=== PATIENT | female | born 1970 | race Caucasian/White ===

== ENCOUNTER → 2019-12-31 12:58 | Outpatient (CLI) | payer OTHER, SELFPAY ==
--- NOTE | ~2019-12-31 | MM_ITS ---
EXAMINATION: MM screening van BI w venkat HISTORY: Screening TECHNIQUE: Craniocaudal and mediolateral oblique 3-D tomosynthesis images were obtained and synthetic 2-D images were generated. CAD analysis was submitted and interpreted. COMPARISON: Comparison to multiple prior studies sequentially, with oldest reviewed study dated 08/16. BREAST PARENCHYMAL COMPOSITION: The breasts are heterogeneously dense, which may obscure small masses . FINDINGS: There is no evidence of suspicious mass, calcification, or architectural distortion to sugg est malignancy in either breast. There has been no suspicious interval change. IMPRESSION: 1. No mammographic evidence of malignancy. 2. Recommend routine screening mammography in one year. BI-RADS Category 1: Negative Reviewed, dictated and finalized at location A.
== END ==
PROVIDERS: Visit Provider Nurse Practitioner
DX: Z12.31 Encounter for screening mammogram for malignant neoplasm of breast (principal)
CPT/HCPCS: 77063; 77067

== ENCOUNTER → 2021-02-27 13:17 | Outpatient (CLI) | payer OTHER, SELFPAY ==
--- NOTE | ~2021-02-27 | MM_ITS ---
EXAMINATION: MM screening van BI w venkat HISTORY: Screening TECHNIQUE: Craniocaudal and mediolateral oblique 3-D tomosynthesis images were obtained and synthetic 2-D images were generated. CAD analysis was submitted and interpreted. COMPARISON: Comparison to multiple prior studies sequentially, with oldest reviewed study dated 05/2014. BREAST PARENCHYMAL COMPOSITION: There are scattered areas of fibroglandular density. FINDINGS: There is no evidence of suspicious mass, calcification, or architectural distortion to sugg est malignancy in either breast. There has been no suspicious interval change. IMPRESSION: 1. No mammographic evidence of malignancy. 2. Recommend routine screening mammography in one year. BI-RADS Category 1: Negative Reviewed, dictated and finalized at location A.
--- NOTE | ~2021-02-27 | DEXA_ITS ---
Bone Density Report Name: Lesia Burks Age: 50 Sex: Female Ethnicity: White Date of : 1970 Indication: osteopenia; monitoring treatment; Referring Provider: BRAYAN, MIESHA Study: Bone densitometry was performed. Exam Date: February 27, 2021 Accession number: [id number] Bone Density: Region BMD T-score Z-score Classification AP Spine (L1-L4) 0.812 -2.1 -1.5 Osteopenia Femoral Neck (Left) 0.758 -0.8 -0.2 Normal Total Hip (Left) 0.802 -1.1 -0.7 Osteopenia Femoral Neck (Right) 0.798 -0.5 0.2 Normal Total Hip (Right) 0.785 -1.3 -0.9 Osteopenia Total Hip Mean 0.794 -1.2 -0.8 Osteopenia World Health Organization criteria for BMD impression classify patients as: Normal (T-score at or above -1.0), Osteopenia (T-score between -1.0 and -2.5), or Osteoporosis (T-score at or below -2.5). 10-year Fracture Risk: FRAX not reported because: Treated for osteoporosis Previous Exams: Region Exam Age BMD T-score BMD Change BMD Change Date g/cm2 vs Baseline vs Previous AP Spine(L1-L4) 02/27/2021 50 0.812 -2.1 -0.031* -0.001 09/25/2018 48 0.813 -2.1 -0.030* -0.026* 09/08/2016 46 0.839 -1.9 -0.004 -0.014 08/16/2013 43 0.853 -1.8 0.010 -0.072* 04/05/2011 40 0.925 -1.1 0.082* 0.064* 01/01/2009 38 0.861 -1.7 0.018 0.018 01/13/2005 34 0.843 -1.9 Total Hip(Left) 02/27/2021 50 0.802 -1.1 -0.068* -0.008 09/25/2018 48 0.810 -1.1 -0.059* -0.056* 09/08/2016 46 0.866 -0.6 -0.004 -0.008 08/16/2013 43 0.874 -0.6 0.004 -0.036* 04/05/2011 40 0.909 -0.3 0.040* 0.067* 01/01/2009 38 0.842 -0.8 -0.027 -0.027 01/13/2005 34 0.870 -0.6 Total Hip(Right) 02/27/2021 50 0.785 -1.3 -0.076* 0.006 09/25/2018 48 0.779 -1.3 -0.082* -0.063* 09/08/2016 46 0.842 -0.8 -0.020 -0.031* 08/16/2013 43 0.873 -0.6 0.012 0.016 04/05/2011 40 0.857 -0.7 -0.004 0.015 01/01/2009 38 0.842 -0.8 -0.019 -0.019 01/13/2005 34 0.862 -0.7 *Denotes significance at 95% confidence level, LSC for AP Spine = 0.022 g/cm2, LSC for Total Hip = 0.027 g/cm2 Clinical Information Provided by Patient: Smokes Is being treated for osteoporosis Has used the foll
== END ==
PROVIDERS: PCP Internal Medicine; Visit Provider Nurse Practitioner
DX: Z12.31 Encounter for screening mammogram for malignant neoplasm of breast (principal); Z78.0 Asymptomatic menopausal state; M85.89 Other specified disorders of bone density and structure, multiple sites
CPT/HCPCS: 77063; 77067; 77080

== ENCOUNTER 2021-04-07 02:31 | Day surgery (SDC) | payer OTHER, SELFPAY ==
[2021-03-23 13:31] VITALS: BMI 21.2
[2021-04-07 07:05] VITALS: BP 134/95; PULSE 97; RESP 18; TEMP 37.1; O2SAT 100; BMI 20.5
[2021-04-07] MEDS: LACTATED RINGERS 1,000 ML 150 ML IV CONT (07:23)
--- NOTE | 2021-04-07 07:46 | WPDGICN ---
Assessment and Plan Assessment and plan (1) Encounter for screening colonoscopy: Code(s): Z12.11 - Encounter for screening for malignant neoplasm of colon Status: Acute Assessment and Plan: Patient presents for screening colonoscopy. She appears to be at average risk for colon polyps. GI Consult Note Consult date/time: 04/07/21 07:46 HPI: Lesia Burks is a 50 year old female Presents for screening colonoscopy. Patient reports that her current weight appetite bowel movements are normal. She denies abdominal pain. She has had no bleeding. Family history is noncontributory. Review of Systems Review of Systems: All systems reviewed & are unremarkable except as noted in HPI and below PMFSH Social History Social History Smoking packs per day: 0.5 Smoking cigarettes per day: 10.0 Years smoked: 20 Smoking pack-years: 10.00 Smoking status: Current every day smoker Tobacco type: cigarettes Alcohol intake: current Drinks per week: 4 Substance use: never Substance use type: does not use Living arrangements: with family Spiritual care concerns: No Meds Home Medications and Allergies Home Medications Medication Instructions Recorded Confirmed Type estradiol 1 mg PO DAILY 03/23/21 04/07/21 History medroxyprogesterone 5 mg PO DAILY 03/23/21 04/07/21 History naproxen sodium [Aleve] 220 mg PO BID PRN 03/23/21 04/07/21 History Allergies Allergy/AdvReac Type Severity Reaction Status Date / Time No Known Allergies Allergy Verified 04/07/21 07:16 Vital Signs Vital Signs - 24 hr 04/07/21 07:05 Temperature 98.7 F Pulse Rate 97 Respiratory Rate 18 Blood Pressure 134/95 H Pulse Oximetry 100 Exam Narrative: Physical exam reveals patient be alert. Vital signs stable. HEENT exam is unremarkable. Patient is anicteric. Lungs are clear to auscultation and percussion. Heart is without murmur or extra sounds. Abdominal exam bowel sounds are present soft nontender with no hepatosplenomegaly. Digital external rectal exam is normal.
--- NOTE | 2021-04-07 07:51 | WPDANESEPPF ---
Anes - Initial Pre Proc Eval Procedure: Operation Date: 04/07/21 08:30 Proposed Procedures p Screening Colonoscopy - Richard Franco MD Date/Time: 04/07/21 07:51 Surgeon: Richard Franco MD Pre Op Diagnosis: neoplasm screening Patient Data Age: 50 Gender: F Height: 1.55 m Weight: 49.4 kg Last Vital Signs Temp 37.1 C 04/07/21 07:05 Pulse 97 04/07/21 07:05 Resp 18 04/07/21 07:05 BP 134/95 H 04/07/21 07:05 Pulse Ox 100 04/07/21 07:05 Allergies Allergy/AdvReac Type Severity Reaction Status Date / Time No Known Allergies Allergy Verified 04/07/21 07:16 Home Medications Medication Instructions Recorded Confirmed Type estradiol 1 mg PO DAILY 03/23/21 04/07/21 History medroxyprogesterone 5 mg PO DAILY 03/23/21 04/07/21 History naproxen sodium [Aleve] 220 mg PO BID PRN 03/23/21 04/07/21 History Patient hx anesthesia problems: none Family hx anesthesia problems: none Results Review: All pre-operative results and documents have been reviewed as part of the pre-operative evaluation. [facility] Social History Social History Smoking packs per day: 0.5 Smoking cigarettes per day: 10.0 Years smoked: 20 Smoking pack-years: 10.00 Smoking status: Current every day smoker Tobacco type: cigarettes Alcohol intake: current Drinks per week: 4 Substance use: never Substance use type: does not use Living arrangements: with family Spiritual care concerns: No Anes - Eval Final PreProcedure Day of Procedure 04/07/21 07:51 Patient weight: overweight Heart: regular rate and rhythm Lungs: clear to auscultation and normal air movement Airway: Mallampati scale class II Neurological: alert and oriented Last oral intake: >/= 8 hours ASA classification: II Emergent: no Anesthetic plan: proceed Anesthesia type and monitoring: general GIVS Results Review: All pre-operative results and documents have been reviewed as part of the pre-operative evaluation. Informed Consent: The patient's anesthetic plan and its attendant risks and benefits were discussed with the patient/family/POA. Questions were solicited and answers provided to the satisfaction of the patient/family/POA.
[2021-04-07 08:39] VITALS: BP 111/85; PULSE 92; RESP 24; O2SAT 100
[2021-04-07 08:49] VITALS: BP 133/93; PULSE 80; RESP 20; O2SAT 100
[2021-04-07 08:59] VITALS: BP 128/88; PULSE 83; RESP 20; O2SAT 100
== END 2021-04-07 09:09 | disposition home or self-care (01) ==
PROVIDERS: PCP Internal Medicine; Referring Provider Obstetrics & Gynecology Gynecology; Visit Provider Internal Medicine Gastroenterology
PROC: 0DJD8ZZ Inspection of Lower Intestinal Tract, Via Natural or Artificial Opening Endoscopic (ICD-10-PCS; CPT 45378; principal; 2021-04-07 08:30)
DX: Z12.11 Encounter for screening for malignant neoplasm of colon (principal); K64.8 Other hemorrhoids; F17.210 Nicotine dependence, cigarettes, uncomplicated
CPT/HCPCS: 45378; J2704; J7120

== ENCOUNTER 2021-04-30 08:31 | Outpatient (CLI) | payer OTHER, SELFPAY ==
--- NOTE | 2021-04-30 | EST_ITS ---
Patient Info Name: Lesia Burks Age: 50 years : 1970 Gender: Female Ht: 61 in Wt: 110 lbs BSA: 1.47 m2 HR: 83 bpm BP: 144 / 90 mmHg Technical Quality: Good Exam Date: 04/30/2021 9:09 AM Exam Location: [facility] Pulmonary Exam Room: stress lab Patient Status: Outpatient Admit Date: 04/30/2021 Staff Ordering Physician: Deshawn, Joshua Torres MD Residential Finish Carpenter: Aissatou Noyola RDCS Attending Provider: PILLO Referring Physician: Elly CALLOWAY; Exercise Technologist: Ursula Painter CT Exercise Physician: Herlinda Reyes MD Exam Type: CA stress echo Study Info Indications - chest pain sob Treadmill exercise stress echocardiogram is performed. Summary 1. Negative stress echocardiogram for ischemia by wall motion analysis. 2. Hypertensive blood pressure response. 3. Good exercise tolerance. Stress Echo Findings Left Ventricle Normal left venticular systolic function with no regional wall motion abnormalities noted at rest. No regional wall motion abnormalities noted post stress. Overall global left ventricular systolic function Improved post stress. Left Ventricle Left ventricular chamber dimension is normal. Left ventricular systolic function is Empty with an estimated ejection fraction of Empty. There is no increased left ventricular wall thickness. Left ventricular septal wall motion is normal. The left ventricular diastolic function is normal. Right Ventricle Right ventricular chamber dimension is normal. Right ventricular systolic function is normal. Left Atria Left atrial chamber dimension is normal. Right Atria Right atrial chamber dimension is normal. Aortic Valve The aortic valve is trileaflet. There is no aortic valve sclerosis. There is no aortic valve stenosis. There is no aortic valve regurgitation. Pulmonary Valve The pulmonic valve is normal. There is no pulmonic valve stenosis. There is no pulmonic regurgitation. Mitral Valve The mitral valve has normal leaflets. There is no mitral valve stenosis. There is no mitral valve regurgitation. Tricuspid Valve The tricuspid valve leaflets are normal. There is no significant tricuspid valve stenosis. There is no tricuspid valve regurgitation. No pulmonary hypertension, estimated pulmonary arterial systolic pressure is Empty. Pericardium The pericardium appears normal. There is no pericardial effusion. Inferior Vena Cava Normal inferior vena cava with <50% collapse upon inspiration consistent with Empty right atrial pressure, Empty. Aorta The aortic root size at the sinus of Valsalva is normal. The prox ascending aorta size is normal. Protocol: Reginald Stress ECG Details Stage: REST Duration (min): 1 min : 0 sec Speed (mph): 0.0 Grade (%): 0 HR (bpm): 82 SBP (mmHg): 144 DBP (mmHg): 90 METS: --- Stage: REST Duration (min): 14 min : 0 sec Speed (mph): 0.0 Grade (%): 0 HR (bpm): 94 SBP (mmHg): 144 DBP (mmHg): 90 METS: --- Stage: STAGE 1 Duration (min): 1 min : 0 sec Speed (mph): 1.7 Grade (%): 10 HR (bpm): 114 SBP (mmHg): 144 DBP (mmHg): 90 METS: --- Stage: STAGE 1 Duration (min): 2 min : 0 sec Speed (mph): 1.7 Grade (%): 10 HR (bpm)
== END 2021-04-30 08:32 | disposition home or self-care (01) ==
LOC: ANHCARD 08:38
PROVIDERS: PCP Internal Medicine; Visit Provider Internal Medicine
DX: R07.9 Chest pain, unspecified (principal); I49.9 Cardiac arrhythmia, unspecified; R06.02 Shortness of breath
CPT/HCPCS: 93351

== ENCOUNTER 2021-08-26 07:28 | Emergency (ER) | payer OTHER, SELFPAY ==
--- NOTE | ~2021-08-26 | CT_ITS ---
EXAMINATION: CT abdomen pelvis w con DATE: 08/26/2021 08:53 INDICATION: Abdominal pain TECHNIQUE: Computed tomography (CT) of the abdomen and pelvis was performed with 100 mL Omnipaque-350 intravenous contrast. Automated exposure control and iterative reconstruction technique were employe d. The dose-length product was 203.00 mGy-cm. COMPARISON: None FINDINGS: Lung bases are clear. Heart size is normal. No pericardial or pleural effusion. Liver, gallbladder, s pleen, pancreas, bilateral adrenal glands and kidneys are normal. Bowels including the appendix are n ormal. Bladder, anteverted uterus and bilateral adnexa are unremarkable. No free intraperitoneal gas or fluid. No pathologically enlarged abdominal or pelvic lymphadenopathy. There is calcified atherosc lerosis of the aorta and many of the other arteries. Moderate stenosis in the bilateral common iliac and right external iliac arteries. Mild scattered degenerative skeletal changes in the spine and bila teral hips. IMPRESSION: 1. No acute intra-abdominal/pelvic process. Reviewed, dictated and finalized at location A.
[2021-08-26 07:32] VITALS: BP 177/92; PULSE 91; RESP 18; TEMP 36.6; O2SAT 100
[2021-08-26 08:02] VITALS: BP 163/97; PULSE 78; RESP 18; O2SAT 100
--- NOTE | 2021-08-26 08:06 | ED.ABDPAIN ---
HPI - Abdominal Pain General Chief Complaint: Abdominal Pain Stated Complaint: abdominal pain Time Seen by Provider: 08/26/21 08:02 Source: patient Mode of arrival: ambulatory Limitations: no limitations History of Present Illness HPI narrative: Patient is a 51-year-old female complaining of mid abdominal pain, 6 out of 10, sharp, nonradiating started a few weeks ago . Patient denies any chest pain, shortness of breath, nausea, vomiting, diarrhea, urinary symptoms, fever or chills. Related Data Home Medications Medication Instructions Recorded Confirmed estradiol 1 mg PO DAILY 03/23/21 04/07/21 medroxyprogesterone 5 mg PO DAILY 03/23/21 04/07/21 naproxen sodium [Aleve] 220 mg PO BID PRN 03/23/21 04/07/21 Allergies Allergy/AdvReac Type Severity Reaction Status Date / Time No Known Allergies Allergy Verified 04/07/21 07:16 Review of Systems Review of Systems: All systems reviewed & are unremarkable except as noted in HPI and below Constitutional: Constitutional: Denies body ache(s), Denies chills, Denies excessive sweating, Denies fatigue, Denies fever(s), Denies headache(s), Denies lethargy, Denies malaise, Denies weakness and Denies weight loss Eyes: Eyes: Denies blurry vision, Denies change in vision and Denies loss of vision ENT: Denies dizziness, Denies ear discharge, Denies headache(s), Denies lip swelling, Denies epistaxis, Denies nasal congestion, Denies neck pain, Denies throat swelling and Denies tongue swelling Cardiovascular: Cardiovascular: Denies chest pain, Denies chest pain at rest, Denies chest pain with activity, Denies diaphoresis, Denies rapid heart rate, Denies edema, Denies irregular heart rhythm, Denies lightheadedness, Denies palpitations, Denies dyspnea and Denies dyspnea on exertion Respiratory: Respiratory: Denies chest congestion, Denies cough, Denies hemoptysis, Denies dyspnea and Denies dyspnea on exertion Gastrointestinal: Gastrointestinal: Denies melena, Denies hematochezia, Denies diarrhea, Denies nausea, Denies vomiting and Denies hematemesis Musculoskeletal: Musculoskeletal: Denies abnormal gait, Denies deformity, Denies joint swelling, Denies limited range of motion, Denies neck pain and Denies numbness Neurologic: Denies Abnormal speech present, Denies abnormal gait, Denies confusion, Denies dizziness, Denies headache(s), Denies focal weakness, Denies loss of vision, Denies numbness, Denies Other visual disturbances, Denies Sensory deficit (Neuro) and Denies weakness Psychiatric: Psychiatric: Denies confusion, Denies depression, Denies auditory hallucinations, Denies homicidal ideation and Denies suicidal ideation Endocrine: Endocrine: Denies cold intolerance, Denies excessive sweating, Denies fatigue, Denies heat intolerance and Denies palpitations Hematologic/Lymphatic: Hematologic/Lymphatic: Denies easy bleeding and Denies easy bruising Allergic/Immunologic: Allergic/Immunologic: Denies lip swelling, Denies throat swelling and Denies tongue swelling [facility] Social History Social History Smoking packs per day: 0.5 Smoking cigarettes per day: 10.0 Years smoked: 20 Smoking pack-years: 10.00 Smoking status: Current every day smoker Tobacco type: cigarettes Alcohol intake: current Drinks per week: 4 Substance use: never Substance use type: does not use Spiritual care concerns: No Comments Past medical history: None Family history: Unknown Exam Const: General: cooperative, healthy appearing, comfortable, no acute distress, well developed, alert and awake; No confusion Orientation/consciousness: oriented to person, oriented to place, oriented to time, patient oriented x3 and No confusion Limitations: no limitations HENMT: Head: normal to inspection, normocephalic and atraumatic Ears: hearing grossly normal bilaterally, TM normal on the right and TM normal on the left General nose exam: Normal external
[2021-08-26 08:08] LABS: Basophils Absolute Auto 0.1 K/mm3 (0.0-0.1); Basophils Percent Auto 0.7 % (0.2-1.2); Eosinophils Absolute Auto 0.2 K/mm3 (0-0.3); Eosinophils Percent Auto 1.9 % (0-4.4); Hemoglobin 14.9 g/dL (12.0-15.0); Immature Granulocyte Absolute 0.02 K/mm3 (0.00-0.031); Immature Granulocyte Percent A 0.2 % (0-0.5); Lymphocytes Absolute Auto 1.98 K/mm3 (0.9-3.2); Lymphocytes Percent Auto 23.5 % (18.3-44.2); Mean Corpuscular HGB Conc 34.7 g/dl (32-36); Mean Corpuscular Hemoglobin 32.2 pg (26-34); Mean Corpuscular Volume 92.9 fl (80-100); Monocytes Absolute Auto 1.1 K/mm3 (0.1-0.6); Neutrophils Absolute Auto 5.1 K/mm3 (1.3-6.7); Neutrophils Percent Auto 60.7 % (45.5-73.1); Platelet Count Result 397 k/mm3 (150-375); Red Blood Count 4.63 M/mm3 (4.2-5.4); Red Cell Distribution Width 13.8 % (11.5-14.5); White Blood Count 8.4 K/mm3 (4.5-10.0)
[2021-08-26 08:09] LABS: Appearance Urine Clear (Clear); Bilirubin Urine Negative (Negative); Blood Urine Negative (Negative); Color Urine Yellow (Yellow); Glucose Urine UA Negative (Negative); Ketones Urine Negative (Negative); Leukocyte Esterase Ur Negative LEU/UL (Negative); Nitrate Urine Negative (Negative); Protein Urine Negative (Negative); Urobilinogen Urine 0.2 mg/dL (<2.0)
[2021-08-26 08:16] LABS: Add Urine Microscopic? NO; Mucus Urine Rare /lpf; RBC Urine 0-2 /hpf (0-2); Squamous Epithelial Cell Urine Occasional /hpf (Few); WBC Urine 0-3 /hpf
[2021-08-26] MEDS: SODIUM CHLORIDE 0.9% IV 1,000 ML 999 ML IV CONT (08:16)
[2021-08-26 08:33] LABS: Alanine Aminotransferase 19 U/L (4-35); Albumin Level 4.4 g/dL (3.5-5.1); Alkaline Phosphatase 83 U/L (38-126); Anion Gap 6 mmol/L (8-16); Aspartate Amino Transferase 38 U/L (14-36); Bilirubin,Total 0.5 mg/dL (0.2-1.3); Blood Urea Nitrogen 11 mg/dL (7-17); Calcium 9.4 mg/dL (8.4-10.2); Carbon Dioxide 26 mmol/L (22-30); Chloride 104 mmol/L (98-107); Estimated CRCL calculation 73 ml/min; Estimated Glomerular Filt Rate > 60; Glucose 102 mg/dL (65-110); Lipase 45 U/L (23-300); Potassium 4.6 mmol/L (3.4-5.0); Sodium 136 mmol/L (137-145)
[2021-08-26 10:14] VITALS: BP 136/95; PULSE 70; RESP 18; O2SAT 100
== END 2021-08-26 10:21 | disposition home or self-care (01) ==
PROVIDERS: Emergency Medicine; Emergency Provider Emergency Medicine; PCP Internal Medicine
DX: K29.00 Acute gastritis without bleeding (principal); R10.9 Unspecified abdominal pain; F17.210 Nicotine dependence, cigarettes, uncomplicated
CPT/HCPCS: 36415; 74177; 80053; 81003; 81025; 83690; 85025; 96360; 99284; J7030; Q9967

== ENCOUNTER 2021-09-21 01:02 | Day surgery (SDC) | payer OTHER, SELFPAY ==
[2021-09-17 09:43] VITALS: BMI 23.7
[2021-09-21 12:33] VITALS: BP 154/87; PULSE 86; RESP 16; TEMP 37.3; O2SAT 100
--- NOTE | 2021-09-21 12:41 | WPDANESEPPF ---
Anes - Initial Pre Proc Eval Procedure: Operation Date: 09/21/21 13:45 Proposed Procedures p Esophagogastroduodenoscopy - Richard Franco MD Date/Time: 09/21/21 12:41 Surgeon: Richard Franco MD Pre Op Diagnosis: nausea, abdominal pain Patient Data Age: 51 Gender: F Height: 1.55 m Weight: 54.9 kg Last Vital Signs Temp 37.3 C 09/21/21 12:33 Pulse 86 09/21/21 12:33 Resp 16 09/21/21 12:33 BP 154/87 H 09/21/21 12:33 Pulse Ox 100 09/21/21 12:33 Allergies Allergy/AdvReac Type Severity Reaction Status Date / Time No Known Allergies Allergy Verified 09/21/21 12:28 Home Medications Medication Instructions Recorded Confirmed Type estradiol 1 mg PO DAILY 03/23/21 09/17/21 History medroxyprogesterone 5 mg PO DAILY 03/23/21 09/17/21 History naproxen sodium [Aleve] 220 mg PO BID PRN 03/23/21 09/17/21 History dicyclomine 10 mg PO QID PRN 09/17/21 09/17/21 History metoprolol succinate 25 mg PO DAILY 09/17/21 09/17/21 History pantoprazole 40 mg PO DAILY 09/17/21 09/17/21 History Patient hx anesthesia problems: none Family hx anesthesia problems: none Results Review: All pre-operative results and documents have been reviewed as part of the pre-operative evaluation. [facility] Past Medical History Medical History Hypertension Social History Social History Smoking packs per day: 0.5 Smoking cigarettes per day: 10.0 Years smoked: 20 Smoking pack-years: 10.00 Smoking status: Current every day smoker Tobacco type: cigarettes Alcohol intake: current Drinks per week: 8 Alcohol use details: 2-3 drinks a couple times per week Substance use: never Substance use type: does not use Living arrangements: with family Additional living arrangements comments: spouse Spiritual care concerns: No Anes - Eval Final PreProcedure Day of Procedure 09/21/21 12:41 Patient weight: normal Heart: regular rate and rhythm Lungs: decreased breath sounds Airway: Mallampati scale class II Neurological: alert and oriented Last oral intake: >/= 8 hours ASA classification: III Emergent: no Anesthetic plan: proceed Anesthesia type and monitoring: general GIVS and standard monitoring Results Review: All pre-operative results and documents have been reviewed as part of the pre-operative evaluation. Informed Consent: The patient's anesthetic plan and its attendant risks and benefits were discussed with the patient/family/POA. Questions were solicited and answers provided to the satisfaction of the patient/family/POA.
[2021-09-21] MEDS: LACTATED RINGERS 1,000 ML 150 ML IV CONT (12:42)
--- NOTE | 2021-09-21 12:50 | WPDGICN ---
Assessment and Plan Assessment and plan (1) Left sided abdominal pain: Code(s): R10.9 - Unspecified abdominal pain Status: Acute Assessment and Plan: Patient with mid left abdominal pain as well as bloating. These are beginning to improve on taking acid suppressing medications. Currently she takes pantoprazole an antispasmodic agent dicyclomine. An EGD is requested to evaluate more thoroughly and this will be performed today. (2) Bloating: Code(s): R14.0 - Abdominal distension (gaseous) Status: Acute GI Consult Note Consult date/time: 09/21/21 12:50 HPI: Lesia Burks is a 51 year old female presents for EGD. Patient has had upper abdominal bloating. This has been present for many months. She also has developed left mid abdominal discomfort. Patient initially went to the emergency room a CT scan was unremarkable. It was felt that she may have gastritis was placed on Pepcid. Eventually she was seen by her primary care physician this was discontinued. She was started on pantoprazole and dicyclomine. She notes that the bloating has gone away but still has vague left mid abdominal discomfort. Pain appears somewhat worse after eating. Her bowel habits are fairly regular. Screening colonoscopy 2 years ago was unremarkable. Patient presents today for EGD to evaluate pain more thoroughly. Her family history is noncontributory. Review of Systems Review of Systems: All systems reviewed & are unremarkable except as noted in HPI and below PMFSH Past Medical History Medical History Hypertension Social History Social History Smoking packs per day: 0.5 Smoking cigarettes per day: 10.0 Years smoked: 20 Smoking pack-years: 10.00 Smoking status: Current every day smoker Tobacco type: cigarettes Alcohol intake: current Drinks per week: 8 Alcohol use details: 2-3 drinks a couple times per week Substance use: never Substance use type: does not use Living arrangements: with family Additional living arrangements comments: spouse Spiritual care concerns: No Meds Home Medications and Allergies Home Medications Medication Instructions Recorded Confirmed Type estradiol 1 mg PO DAILY 03/23/21 09/21/21 History medroxyprogesterone 5 mg PO DAILY 03/23/21 09/21/21 History naproxen sodium [Aleve] 220 mg PO BID PRN 03/23/21 09/21/21 History dicyclomine 10 mg PO QID PRN 09/17/21 09/21/21 History metoprolol succinate 25 mg PO DAILY 09/17/21 09/21/21 History pantoprazole 40 mg PO DAILY 09/17/21 09/21/21 History Allergies Allergy/AdvReac Type Severity Reaction Status Date / Time No Known Allergies Allergy Verified 09/21/21 12:28 Vital Signs Vital Signs - 24 hr 09/21/21 12:33 Temperature 99.1 F Pulse Rate 86 Respiratory Rate 16 Blood Pressure 154/87 H Pulse Oximetry 100 Exam Narrative: Physical exam reveals patient to be alert. Vital signs stable. HEENT exam reveals her to be anicteric. Lungs are clear to auscultation and percussion. Heart is without murmur or extra sounds. Abdominal exam bowel sounds present soft nontender with no organomegaly.
[2021-09-21 13:07] VITALS: BP 132/78; PULSE 73; RESP 24; O2SAT 98
[2021-09-21 13:17] VITALS: BP 133/84; PULSE 71; RESP 21; O2SAT 100
[2021-09-21 13:27] VITALS: BP 154/84; PULSE 70; RESP 17; O2SAT 100
== END 2021-09-21 13:39 | disposition home or self-care (01) ==
PROVIDERS: PCP Internal Medicine; Visit Provider Internal Medicine Gastroenterology
PROC: 0DJ08ZZ Inspection of Upper Intestinal Tract, Via Natural or Artificial Opening Endoscopic (ICD-10-PCS; CPT 43235; principal; 2021-09-21 13:45)
DX: R10.12 Left upper quadrant pain (principal); R14.0 Abdominal distension (gaseous); I10 Essential (primary) hypertension; F17.210 Nicotine dependence, cigarettes, uncomplicated
CPT/HCPCS: 43239; 87081; J2704; J7120

== ENCOUNTER → 2021-10-03 08:15 | Outpatient (CLI) | payer OTHER, SELFPAY ==
--- NOTE | ~2021-10-03 | US_ITS ---
EXAMINATION: US right upper quadrant DATE: 10/03/2021 08:50 INDICATION: Generalized abdominal pain and nausea TECHNIQUE: Multiple grayscale and Doppler ultrasound images of the abdomen were obtained. COMPARISON: CT, 08/26/2021 FINDINGS: The head, body, and tail of the pancreas are normal. The liver is normal with normal echoge nicity and echotexture. No surface nodularity. Normal hepatopetal flow in the main portal vein. The g allbladder is normal with no abnormal wall thickening, pericholecystic fluid or stones. The normal co mmon bile duct measures 3 mm. There was no sonographic Woody sign. IMPRESSION: 1. Normal sonographic study of the gallbladder. Reviewed, dictated and finalized at location A.
== END ==
PROVIDERS: PCP Internal Medicine; Visit Provider Internal Medicine
DX: R10.9 Unspecified abdominal pain (principal); R11.0 Nausea
CPT/HCPCS: 76705

== ENCOUNTER → 2022-06-10 15:17 | Outpatient (CLI) | payer OTHER, SELFPAY ==
--- NOTE | ~2022-06-10 | MM_ITS ---
EXAMINATION: MM screening van BI w venkat HISTORY: Screening TECHNIQUE: Craniocaudal and mediolateral oblique 3-D tomosynthesis images were obtained and synthetic 2-D images were generated. CAD analysis was submitted and interpreted. COMPARISON: Comparison to multiple prior studies sequentially, with oldest reviewed study dated 05/2014. BREAST PARENCHYMAL COMPOSITION: Breast composed of scattered areas of fibroglandular density FINDINGS: There is no evidence of suspicious mass, calcification, or architectural distortion to sugg est malignancy in either breast. There has been no suspicious interval change. IMPRESSION: 1. No mammographic evidence of malignancy. 2. Recommend routine screening mammography in one year. BI-RADS Category 1: Negative Reviewed, dictated and finalized at location A. DIGGER
== END ==
PROVIDERS: PCP Nurse Practitioner; Visit Provider Nurse Practitioner
DX: Z12.31 Encounter for screening mammogram for malignant neoplasm of breast (principal)
CPT/HCPCS: 77063; 77067

== ENCOUNTER 2022-07-04 20:40 | Emergency (ER) | payer OTHER, SELFPAY ==
--- NOTE | ~2022-07-04 | CT_ITS ---
Non-contrast Head CT History: Headache Technique: Axial non-contrast imaging of the brain was performed. Dose reduction technique was used on this scan by utilizing automated exposure control and iterative reconstruction technique. The dose -length product (DLP) was 605.33 mGy-cm. Findings: There is no evidence of intracranial hemorrhage, mass lesion, or acute infarct. Brain par enchyma appears normal. The ventricles and subarachnoid spaces are normal in size. The calvarium ap pears normal. The visualized paranasal sinuses and mastoid air cells are clear. Impression: No significant abnormality seen. Reviewed, dictated and finalized at location . GHT ENGINEER Impression: No significant abnormality seen.
[2022-07-04 21:07] VITALS: BP 193/94; PULSE 79; RESP 18; TEMP 36.9; O2SAT 100
[2022-07-04 22:57] VITALS: BP 172/93; PULSE 71; RESP 19; O2SAT 99
[2022-07-04 22:58] VITALS: BP 172/93; PULSE 77; RESP 20; O2SAT 99
[2022-07-04 23:01] VITALS: BP 172/86; PULSE 74; RESP 21; O2SAT 98
[2022-07-04 23:46] VITALS: BP 148/83; PULSE 78; RESP 15; O2SAT 99
--- NOTE | 2022-07-05 00:03 | ECG_ITS ---
Measurements Intervals [place] Rate: 65 P: 66 IN: 182 QRS: 72 QRSD: 93 T: 58 QT: 381 QTc: 399 Interpretive Statements SINUS RHYTHM NORMAL ECG NO PREVIOUS ECG AVAILABLE FOR COMPARISON Electronically Signed On 07-05-2022 16:15:30 HAND DRILLER by Jordan Devi M.D.
--- NOTE | 2022-07-05 00:05 | ED.HA ---
HPI - Headache General Chief Complaint: Headache Stated Complaint: headaches and HTN Time Seen by Provider: 07/04/22 22:44 Source: patient Mode of arrival: ambulatory Limitations: no limitations History of Present Illness HPI Narrative: Patient is a 51-year-old female who presents the ED with report of headaches and high blood pressure. Patient reports she developed a bitemporal headache on Tuesday. Pain somewhat resolved by the time she went to bed. She developed the headache again on Tuesday. She checked her blood pressure at that time and noted to be in the 140s systolic. She states this seemed high for her but she does not typically check her blood pressure so she is unsure of her baseline. She does take metoprolol 25 mg daily. She again developed a headache today. Tonight around dinnertime, she began feeling unwell with chills, nausea. She checked her blood pressure at that time and noted to be in the 170s. She then decided to come to the ED. Patient denies any current nausea, vomiting, abdominal pain, fever, chest pain, difficulty breathing, dizziness, lightheadedness, vision changes, neck pain, focal weakness, numbness. Related Data Home Medications Medication Instructions Recorded Confirmed estradiol 1 mg tablet 1 mg PO DAILY 03/23/21 09/21/21 medroxyprogesterone 5 mg tablet 5 mg PO DAILY 03/23/21 09/21/21 naproxen sodium 220 mg capsule 220 mg PO BID PRN Pain 03/23/21 09/21/21 (Aleve) dicyclomine 10 mg capsule 10 mg PO QID PRN Abdominal Pain 09/17/21 09/21/21 metoprolol succinate 25 mg 25 mg PO DAILY 09/17/21 09/21/21 tablet,extended release 24 hr pantoprazole 40 mg tablet,delayed 40 mg PO DAILY 09/17/21 09/21/21 release Allergies Allergy/AdvReac Type Severity Reaction Status Date / Time No Known Allergies Allergy Verified 07/04/22 20:43 Review of Systems Review of Systems: CONSTITUTIONAL: Denies fever. EYES: Denies visual changes. CARDIOVASCULAR: Denies chest pain. RESPIRATORY: Denies dyspnea. GASTROINTESTINAL: See HPI. GENITOURINARY: Denies dysuria or hematuria. MUSCULOSKELETAL: Denies back pain, joint pain, or myalgia. NEUROLOGIC: See HPI. All systems reviewed & are unremarkable except as noted in HPI and below PMFSH Past Medical History Medical History Hypertension Surgical History Surgical History No pertinent past surgical history Social History Social History Smoking packs per day: 0.5 Smoking cigarettes per day: 10.0 Years smoked: 20 Smoking pack-years: 10.00 Smoking status: Current every day smoker Tobacco type: cigarettes Alcohol intake: current Drinks per week: 8 Alcohol use details: 2-3 drinks a couple times per week Substance use: never Substance use type: does not use Living arrangements: with family Additional living arrangements comments: spouse Spiritual care concerns: No Exam Narrative: GENERAL: Well appearing, well-nourished, non-toxic, in no acute distress. HEAD: Normocephalic, atraumatic. EYES: PERRL/EOMI, conjunctivae clear bilaterally. No nystagmus. NECK: Supple. No adenopathy, no masses. RESPIRATORY: Airway patent, respirations nonlabored. Clear to auscultation bilaterally, no rales, rhonchi, wheezing. CARDIOVASCULAR: Regular rate and rhythm without murmurs, rubs, or gallops. Radial pulses 2+ and equal bilaterally. ABDOMINAL: Soft, nontender, nondistended, no hepatosplenomegaly. Normoactive BS. MUSCULOSKELETAL: Moves all extremities. Strength/ROM intact without gross deformities or TTP. No edema. No calf tenderness. Left foot in postop shoe from ingrown toenail removal. SKIN: Warm, dry, normal color. No rashes. NEURO: A&O X3. Speech clear. Follows commands. CN II-XII intact. Sensation grossly intact. Steady gait. No ataxic movements. Strength 5/5 in upper
[2022-07-05 00:16] VITALS: BP 147/86; PULSE 65; RESP 18; O2SAT 99
[2022-07-05 00:26] LABS: Basophils Absolute Auto 0.1 K/mm3 (0.0-0.1); Basophils Percent Auto 0.8 % (0.2-1.2); Eosinophils Absolute Auto 0.3 K/mm3 (0-0.3); Eosinophils Percent Auto 2.8 % (0-4.4); Hematocrit 39.7 % (37.0-47.0); Hemoglobin 13.4 g/dL (12.0-15.0); Immature Granulocyte Absolute 0.03 K/mm3 (0.00-0.031); Immature Granulocyte Percent A 0.3 % (0-0.5); Lymphocytes Absolute Auto 2.37 K/mm3 (0.9-3.2); Lymphocytes Percent Auto 26.5 % (18.3-44.2); Mean Corpuscular HGB Conc 33.8 g/dl (32-36); Mean Corpuscular Hemoglobin 31.8 pg (26-34); Mean Corpuscular Volume 94.3 fl (80-100); Mean Platelet Volume 8.8 fl (7.4-10.4); Neutrophils Absolute Auto 5.3 K/mm3 (1.3-6.7); Neutrophils Percent Auto 58.6 % (45.5-73.1); Platelet Count Result 357 k/mm3 (150-375); Red Blood Count 4.21 M/mm3 (4.2-5.4)
[2022-07-05 00:43] LABS: Alanine Aminotransferase 24 U/L (6-35); Albumin Level 4.1 g/dL (3.5-5.1); Alkaline Phosphatase 72 U/L (38-126); Anion Gap 4 mmol/L (8-16); Aspartate Amino Transferase 27 U/L (14-36); Bilirubin,Total 0.5 mg/dL (0.2-1.3); Blood Urea Nitrogen 11 mg/dL (7-17); Calcium 9.2 mg/dL (8.4-10.2); Carbon Dioxide 27 mmol/L (22-30); Chloride 109 mmol/L (98-107); Estimated CRCL calculation 63 ml/min; Estimated Glomerular Filt Rate > 60; Glucose 98 mg/dL (65-110); Potassium 3.8 mmol/L (3.4-5.0); Sodium 140 mmol/L (137-145)
[2022-07-05 00:55] LABS: Troponin I < 0.012 ng/mL (0.000-0.034)
[2022-07-05 01:01] VITALS: BP 140/83; PULSE 74; RESP 19; O2SAT 100
[2022-07-05 01:34] LABS: CRP 0.5 mg/dL (<1.0)
[2022-07-05] MEDS: IBUPROFEN 600 MG TABLET PO (01:55)
[2022-07-05 02:08] LABS: Erythrocyte Sedimentation Rate 13 mm/hr (0-20)
[2022-07-05 02:15] VITALS: BP 147/84; PULSE 68; RESP 20; O2SAT 100
== END 2022-07-05 02:20 | disposition home or self-care (01) ==
PROVIDERS: Emergency Provider Physician Assistant; PCP Nurse Practitioner
DX: R51.9 Headache, unspecified (principal); I10 Essential (primary) hypertension; F17.210 Nicotine dependence, cigarettes, uncomplicated
CPT/HCPCS: 36415; 70450; 80053; 84484; 85025; 85652; 86140; 93005; 99284; A9270

== ENCOUNTER 2022-07-26 16:32 | Observation (INO) | payer OTHER, SELFPAY ==
[2022-07-26] VITALS (30 sets, daily range): BP systolic 123–167; BP diastolic 84–115; PULSE 73–180; RESP 10–22; TEMP 36.1–36.9; O2SAT 95–100; BMI 22.4
--- NOTE | ~2022-07-26 | XR_ITS ---
EXAMINATION: XR chest 2V Exam Date/Time: 07/26/2022 18:[address] HISTORY: CP Comparison: 09/02/2014. RESULT: Lines, tubes, and devices: None. Lungs and pleura: Increased AP diameter and hemidiaphragm flattening as can be seen with emphysema. Cardiomediastinal silhouette: Stable. Other: No acute osseous or upper abdominal finding. IMPRESSION: No acute cardiopulmonary process. Reviewed, dictated and finalized at location K. LLATE [facility] CLERK
--- NOTE | ~2022-07-26 | CT_ITS ---
EXAMINATION: CTA chest PE protocol DATE: 07/26/2022 19:47 INDICATION: cp, sob, tachycardia, recent travel, smoker TECHNIQUE: Computed tomography angiography (CTA) of the chest was performed with 100 mL Omnipaque-350 intravenous contrast timed to evaluate the pulmonary arteries. Coronal maximum intensity projection 3D-reconstructions were created by the technologist. The dose-length product (DLP) was 196.22 mGy-cm. Automated exposure control and iterative reconstruction technique were employed. COMPARISON: X-ray chest, same date; CT abdomen and pelvis 08/26/2021. FINDINGS: Lung parenchyma and airways: Minimal dependent atelectasis.. Pleura: Unremarkable. Thoracic inlet, axillae and chest wall: Unremarkable. Thoracic aorta: Mild arch ectasia and calcification.. Mediastinum: Normal. Heart and pericardium: Normal. Coronary artery calcifications: Absent. Upper abdomen: No significant finding. Bones: No acute osseous finding. Pulmonary arteries: Study quality: Adequate. No pulmonary emboli detected. IMPRESSION: No CT evidence of acute pulmonary embolus. No acute process detected in the chest. Reviewed, dictated and finalized at location K. [place] SALES ASSOCIATE IMPRESSION: No CT evidence of acute pulmonary embolus. No acute process detected in the [facility].
--- NOTE | 2022-07-26 17:42 | ECG_ITS ---
Measurements Intervals [place] Rate: 106 P: 63 VA: 183 QRS: 71 QRSD: 89 T: 49 QT: 316 QTc: 420 Interpretive Statements SINUS TACHYCARDIA ABNORMAL RHYTHM ECG COMPARED TO ECG 07/05/2022 00:38:14 SINUS TACHYCARDIA NOW PRESENT Electronically Signed On 07-27-2022 11:30:43 FELLED SEAM OPERATOR CHAINSTITCH by Teena Hartmann M.D.
--- NOTE | 2022-07-26 17:54 | ED.RECABL ---
HPI - Recheck/Abnormal Lab/Rx General Chief Complaint: Recheck/Abnormal Lab/Rx <Julienne Sims PA-C - Last Filed: 07/26/22 20:30> Stated Complaint: HTN <Julienne Sims PA-C - Last Filed: 07/26/22 20:30> Time Seen by Provider: 07/26/22 17:43 <Julienne Sims PA-C - Last Filed: 07/26/22 20:30> Source: patient <Julienne Sims PA-C - Last Filed: 07/26/22 20:30> Mode of arrival: ambulatory <ESPINOZA Barnett Last Filed: 07/26/22 20:30> Limitations: no limitations <Julienne Sims PA-C - Last Filed: 07/26/22 20:30> History of Present Illness HPI narrative: This is a 52-year-old female that presents to the emergency department for feelings of her heart racing. Reports this has been ongoing since last night. She is currently taking an antibiotic and a steroid for a sinus infection. Reports her heart rate has been elevated and she has been having some tightness on the left side of her chest. Denies fever, cough, shortness of breath, or lower extremity edema. <Julienne Sims PA-C - Last Filed: 07/26/22 20:30> Related Data Home Medications: Home Medications Medication Instructions Recorded Confirmed estradiol 1 mg tablet 1 mg PO DAILY 03/23/21 07/26/22 medroxyprogesterone 5 mg tablet 5 mg PO DAILY 03/23/21 07/26/22 pantoprazole 40 mg tablet,delayed 40 mg PO DAILY 09/17/21 07/26/22 release amlodipine 5 mg tablet 5 mg PO DAILY 07/26/22 07/26/22 amoxicillin 875 mg-potassium 1 tablet PO BID 07/26/22 07/26/22 clavulanate 125 mg tablet buspirone 7.5 mg tablet 7.5 mg PO TID PRN Anxiety 07/26/22 07/26/22 fluticasone propionate 50 2 spray intranasal BID 07/26/22 07/26/22 mcg/actuation nasal spray,suspension ibuprofen 200 mg tablet 400 mg PO Q6H PRN Pain 07/26/22 07/26/22 <Julienne Sims PA-C - Last Filed: 07/26/22 20:30> Allergies/Adverse Reactions: Allergies Allergy/AdvReac Type Severity Reaction Status Date / Time No Known Allergies Allergy Verified 07/26/22 16:38 <Julienne Sims PA-C - Last Filed: 07/26/22 20:30> Review of Systems Review of Systems: CONSTITUTIONAL: Denies fever CARDIOVASCULAR: Reports chest pain, palpitations. Denies edema. RESPIRATORY: Denies cough or dyspnea. <ESPINOZA Barnett Last Filed: 07/26/22 20:30> All systems reviewed & are unremarkable except as noted in HPI and below <Julienne Sims PA-C - Last Filed: 07/26/22 20:30> [facility] Past Medical History Medical History: Medical History Hypertension <Julienne Sims PA-C - Last Filed: 07/26/22 20:30> Surgical History Surgical History: Surgical History No pertinent past surgical history <Julienne Sims PA-C - Last Filed: 07/26/22 20:30> Social History Social History: Social History Smoking packs per day: 0.5 Smoking cigarettes per day: 10.0 Years smoked: 25 Smoking pack-years: 12.50 Smoking status: Current every day smoker Tobacco type: cigarettes Alcohol intake: current Drinks per week: 8 Alcohol use details: 2-3 drinks a couple times per week Substance use: never Substance use type: does not use Lack of Transportation: No Lack of Food: Never True Current Housing: I Have Housing Concerned About Future Housing: No Difficulty Paying Gas/Electric Bills: No Difficulty Paying for Meds: No Currently Unemployed: No Education: High School Diploma/GED Difficulty w/ Childcare or Family Care: No Living arrangements: with family Additional living arrangements comments: spouse Spiritual care concerns: No <Julienne Sims PA-C - Last Filed: 07/26/22 20:30> Exam Narrative: GENERAL: Well-appearing, well-nourished, and in no acute distress. HEAD: Normocephalic, atraumatic. EYES: EOMI. ENT: Nares clear, no rhinorrhea or epistaxis. Mucous me
[2022-07-26] MEDS: SODIUM CHLORIDE 0.9% IV 500 ML 999 ML IV CONT (18:05)
[2022-07-26 18:23] LABS: Basophils Absolute Auto 0.1 K/mm3 (0.0-0.1); Basophils Percent Auto 0.5 % (0.2-1.2); Eosinophils Absolute Auto 0.1 K/mm3 (0-0.3); Eosinophils Percent Auto 0.9 % (0-4.4); Hematocrit 42.7 % (37.0-47.0); Hemoglobin 14.8 g/dL (12.0-15.0); Immature Granulocyte Absolute 0.05 K/mm3 (0.00-0.031); Immature Granulocyte Percent A 0.4 % (0-0.5); Lymphocytes Absolute Auto 3.82 K/mm3 (0.9-3.2); Mean Corpuscular HGB Conc 34.7 g/dl (32-36); Mean Corpuscular Volume 92.2 fl (80-100); Mean Platelet Volume 8.9 fl (7.4-10.4); Monocytes Absolute Auto 1.9 K/mm3 (0.1-0.6); Monocytes Percent Auto 15.8 % (2.6-8.5); Neutrophils Percent Auto 50.4 % (45.5-73.1); Platelet Count Result 527 k/mm3 (150-375); Red Blood Count 4.63 M/mm3 (4.2-5.4); Red Cell Distribution Width 13.2 % (11.5-14.5); White Blood Count 11.9 K/mm3 (4.5-10.0)
[2022-07-26 18:31] LABS: Anion Gap 7 mmol/L (8-16); Blood Urea Nitrogen 12 mg/dL (7-17); Calcium 9.1 mg/dL (8.4-10.2); Carbon Dioxide 28 mmol/L (22-30); Chloride 101 mmol/L (98-107); Estimated CRCL calculation 85 ml/min; Estimated Glomerular Filt Rate > 60; Glucose 94 mg/dL (65-110); Potassium 3.6 mmol/L (3.4-5.0); Sodium 136 mmol/L (137-145)
[2022-07-26 18:32] LABS: INR 0.9
[2022-07-26 18:33] LABS: Partial Thromboplastin Time 28.9 SECONDS (22.3-36.8)
[2022-07-26 18:43] LABS: Troponin I < 0.012 ng/mL (0.000-0.034)
[2022-07-26] MEDS: SODIUM CHLORIDE 0.9% IV 1,000 ML 999 ML (19:07)
[2022-07-26] MEDS: dilTIAZem HCl INJ 25 MG/5 ML VIAL 10 MG IV PUSH (19:07)
[2022-07-26 19:15] LABS: D Dimer 1.01 ug/mL (<0.48)
--- NOTE | 2022-07-26 19:33 | ECG_ITS ---
Measurements Intervals [place] Rate: 179 P: [place]: 0 QRS: 68 QRSD: 86 T: 97 QT: 252 QTc: 436 Interpretive Statements SUPRAVENTRICULAR TACHYCARDIA NONSPECIFIC ST & T-WAVE ABNORMALITY ABNORMAL RHYTHM ECG COMPARED TO ECG 07/26/2022 17:47:27 SUPRAVENTRICULAR TACHYCARDIA NOW PRESENT Electronically Signed On 07-27-2022 11:31:32 BALANCE BRIDGE INSPECTOR by Teena Hartmann M.D.
[2022-07-26] MEDS: dilTIAZem HCL CD 180 MG CAP.ER.24H PO (19:37)
--- NOTE | 2022-07-26 19:59 | PM.IMHP ---
H&P: HPI History of Present Illness Date/Time: 07/26/22 19:59 Chief Complaint: PALPITATIONS PMFSH Past Medical History Medical History Hypertension Surgical History Surgical History No pertinent past surgical history Social History Social History Smoking packs per day: 0.5 Smoking cigarettes per day: 10.0 Years smoked: 25 Smoking pack-years: 12.50 Smoking status: Current every day smoker Tobacco type: cigarettes Alcohol intake: current Drinks per week: 8 Alcohol use details: 2-3 drinks a couple times per week Substance use: never Substance use type: does not use Lack of Transportation: No Lack of Food: Never True Current Housing: I Have Housing Concerned About Future Housing: No Difficulty Paying Gas/Electric Bills: No Difficulty Paying for Meds: No Currently Unemployed: No Education: High School Diploma/GED Difficulty w/ Childcare or Family Care: No Living arrangements: with family Additional living arrangements comments: spouse Spiritual care concerns: No Meds Home Medications and Allergies Home Medications Medication Instructions Recorded Confirmed Type estradiol 1 mg tablet 1 mg PO DAILY 03/23/21 07/26/22 History medroxyprogesterone 5 mg tablet 5 mg PO DAILY 03/23/21 07/26/22 History metoprolol succinate 25 mg 25 mg PO DAILY 09/17/21 07/26/22 History tablet,extended release 24 hr pantoprazole 40 mg tablet,delayed 40 mg PO DAILY 09/17/21 07/26/22 History release amlodipine 5 mg tablet 5 mg PO DAILY 07/26/22 07/26/22 History amoxicillin 875 mg-potassium 1 tablet PO BID 07/26/22 07/26/22 History clavulanate 125 mg tablet buspirone 7.5 mg tablet 7.5 mg PO TID PRN Anxiety 07/26/22 07/26/22 History fluticasone propionate 50 2 spray intranasal BID 07/26/22 07/26/22 History mcg/actuation nasal spray,suspension ibuprofen 200 mg tablet 400 mg PO Q6H PRN Pain 07/26/22 07/26/22 History Allergies Allergy/AdvReac Type Severity Reaction Status Date / Time No Known Allergies Allergy Verified 07/26/22 16:38 Vital Signs Vital Signs - 24 hr 07/26/22 16:33 07/26/22 17:29 07/26/22 17:30 Temperature 98.5 F Pulse Rate 80 117 H 112 H Respiratory Rate 18 17 12 Blood Pressure 167/87 H 162/110 H Pulse Oximetry 100 96 96 Oxygen Delivery Room Air 07/26/22 17:31 07/26/22 17:32 07/26/22 17:45 Temperature Pulse Rate 112 H 108 H 115 H Respiratory Rate 15 17 15 Blood Pressure 139/102 H Pulse Oximetry 96 95 97 Oxygen Delivery 07/26/22 17:46 07/26/22 18:00 07/26/22 18:01 Temperature Pulse Rate 104 H 107 H 162 H Respiratory Rate 14 19 17 Blood Pressure 123/101 H 130/95 H Pulse Oximetry 95 96 Oxygen Delivery 07/26/22 19:01 07/26/22 18:02 07/26/22 18:19 Temperature Pulse Rate 163 H 107 H 105 H Respiratory Rate 17 13 Blood Pressure Pulse Oximetry 98 Oxygen Delivery 07/26/22 18:30 07/26/22 18:45 07/26/22 18:51 Temperature Pulse Rate 103 H 104 H 180 H Respiratory Rate 10 L 15 18 Blood Pressure 153/115 H Pulse Oximetry 99 97 100 Oxygen Delivery Exam Const: General: comfortable, no acute distress, well developed, alert, awake and average body habitus Nutritional Appearance: average body habitus Orientation/consciousness: patient oriented x3 HENMT: Head: normal to inspection, normocephalic and atraumatic Ears: hearing grossly normal bilaterally Face/Nose/Sinus: normal facial exam Face and sinus: normal facial exam Eyes: General: appearance normal, both eyes and all related structures Pupils: Equal, round and reactive pupils present EOM: EOMs intact bilaterally Neck: Neck: full ROM, no lymphadenopathy and no JVD Thyroid: thyroid normal Lymphatic: no lymphadenopathy noted Resp: Effort & Inspectio
--- NOTE | 2022-07-26 21:15 | ADMGEN ---
This patient, Lesia Burks, was admitted to IMU Room 211-01 at 2114. Patient/family oriented to hospital policies and general routines including ID bracelet, bed and alarms, visiting hours, pain management, procedures, bathroom and other care routines, personal items, smoking policy, room service/diet, and visiting hours. Information on how to activate the Rapid Response Team has been discussed. Patient/Family are encouraged to report perceived risks to care and to ask questions if they do not understand what they are told or what they should do.
[2022-07-26 21:39] LABS: Influenza A QL RT-PCR Negative (Negative); Influenza B QL RT-PCR Negative (Negative); SARS-CoV-2 RNA PCR Negative
[2022-07-27] VITALS (9 sets, daily range): BP systolic 107–115; BP diastolic 76–82; PULSE 71–92; RESP 16–20; TEMP 36.6–37; O2SAT 100
--- NOTE | 2022-07-27 | ECHO_ITS ---
Patient Info Name: Lesia Burks Age: 52 years : 1970 Gender: Female Ht: 61 in Wt: 119 lbs BSA: 1.53 m2 HR: 94 bpm BP: 184 / 112 mmHg Heart Rhythm: Sinus Rhythm Exam Date: 07/27/2022 8:54 AM Exam Location: [facility] Patient Status: Inpatient Admit Date: 07/26/2022 Staff Ordering Physician: Juan Miguel Aggarwal MD Cnc Specialist: Chandler Woody, MARKY, RT Attending Provider: Juan Miguel Aggarwal MD Referring Physician: Alessia LAUGHLIN; Exam Type: CA echo doppler color flow Study Info Indications I11.0 - Hypertensive heart disease with heart failure Complete two-dimensional, color flow and Doppler transthoracic echocardiogram is performed. Strain analysis performed. Summary 1. Complete two-dimensional, color flow and Doppler transthoracic echocardiogram is performed. 2. Left ventricular chamber dimension is normal. 3. Left ventricular systolic function is hyperdynamic, estimated at >70%. 4. Right ventricular systolic function is normal. 5. No significant valvular disease. Left Ventricle Left ventricular chamber dimension is normal. Left ventricular systolic function is hyperdynamic, estimated at >70%. There is no increased left ventricular wall thickness. Global longitudinal strain is -17 %. Right Ventricle Right ventricular chamber dimension is normal. Right ventricular systolic function is normal. Left Atria Left atrial chamber dimension is normal. Right Atria Right atrial chamber dimension is normal. Atrial Septum Intact interatrial septum visualized by color flow imaging. Aortic Valve The aortic valve is probable trileaflet. There is no aortic valve stenosis. There is no aortic valve regurgitation. Pulmonic Valve The pulmonic valve is not well visualized. Mitral Valve The mitral valve has normal leaflets. There is no mitral valve stenosis. There is trace mitral valve regurgitation. Tricuspid Valve There is no significant tricuspid valve stenosis. There is trace tricuspid valve regurgitation. Pericardium/Pleural There is no pericardial effusion. Inferior Vena Cava Normal inferior vena cava with >50% collapse upon inspiration consistent with normal right atrial pressure, 3 mmHg. Aorta The aortic root size at the sinus of Valsalva is normal. Left Ventricular Outflow Tract Name Value Normal LVOT 2D LVOT Diameter 1.9 cm LVOT Doppler LVOT Peak Gradient 4 mmHg LVOT Mean Gradient 2 mmHg LVOT VTI 15 cm LVOT VTI/AV VTI Ratio 0.9 LVOT Stroke Volume 41 ml LVOT CO 4.1 l/min LVOT CI 2.7 l/min/m2 Mitral Valve Name Value Normal MV Doppler MV Decel [place] 775 cm/s2
[2022-07-27] MEDS: estradioL 1 MG TABLET PO (08:20)
[2022-07-27] MEDS: amLODIPine BESYLATE 5 MG TABLET PO (08:20)
[2022-07-27] MEDS: PANTOPRAZOLE 40 MG TABLET PO (08:20)
[2022-07-27] MEDS: METOPROLOL SUCCINATE EXT REL 25 MG TABCR PO (08:20)
[2022-07-27] MEDS: AMOXICILLIN/CLAVULANATE K 875-125 MG TAB 1 TABLET PO (08:20)
[2022-07-27] MEDS: FLUTICASONE PROPIONATE 0.05% NA SPR 16 GM BTL (*BKC) 2 SPRAY NASAL (08:20)
[2022-07-27] MEDS: busPIRone HCL 5 MG TABLET PO (08:22)
[2022-07-27] MEDS: busPIRone HCL 2.5 MG TABLET PO (08:22)
--- NOTE | 2022-07-27 09:59 | PM.CNCAR ---
Assessment and Plan Assessment and plan (1) Paroxysmal supraventricular tachycardia: Code(s): I47.1 - Supraventricular tachycardia Status: Acute Assessment and Plan: Currently in sinus rhythm. Review of ECG confirms SVT. Review of telemetry does show atrial trigeminy which leads into SVT. On Metoprolol 25mg QD at home, will increase dose to 50mg QD. Check TSH level. TTE to rule out underlying structural heart disease. If TSH and TTE are okay, then patient can be discharged home on the 50mg of Metoprolol. Will have patient wear a 30 day event monitor upon discharge (order already placed). Will have her follow up in clinic with us. History of Present Illness History of Present Illness Consult date/time: 07/27/22 09:59 Requesting physician: Julienne Sims PA-C Consult reason: Other (SVT) Reason For Visit: SVT Narrative: We are consulted for SVT. This is a 52-year-old female with a history of hypertension who presented to [place] [facility] for palpitations. Patient denies any past cardiac issues. Reports she had just returned from [place]. Had a sinus infection for which she was taking antibiotics and steroids. ER notes that she went into several episodes of SVT. This did initially respond to Valsalva maneuvers, but patient would go back into SVT. Given an oral dose of Diltiazem and IV Diltiazem which responded well. CTA negative for PE or other acute findings. Troponins negative. Patient denies any past diagnosis of SVT or other arrhythmias. Review of Systems Review of Systems: 12 point ROS obtained. Negative, unless stated in HPI. [facility] Past Medical History Medical History Hypertension Surgical History Surgical History No pertinent past surgical history Social History Social History Smoking packs per day: 0.5 Smoking cigarettes per day: 10.0 Years smoked: 25 Smoking pack-years: 12.50 Smoking status: Current every day smoker Tobacco type: cigarettes Alcohol intake: current Drinks per week: 8 Alcohol use details: 2-3 drinks a couple times per week Substance use: never Substance use type: does not use Lack of Transportation: No Lack of Food: Never True Current Housing: I Have Housing Concerned About Future Housing: No Difficulty Paying Gas/Electric Bills: No Difficulty Paying for Meds: No Currently Unemployed: No Education: High School Diploma/GED Difficulty w/ Childcare or Family Care: No Living arrangements: with family Additional living arrangements comments: spouse Spiritual care concerns: No Meds Home Medications and Allergies Home Medications Medication Instructions Recorded Confirmed Type estradiol 1 mg tablet 1 mg PO DAILY 03/23/21 07/26/22 History medroxyprogesterone 5 mg tablet 5 mg PO DAILY 03/23/21 07/26/22 History metoprolol succinate 25 mg 25 mg PO DAILY 09/17/21 07/26/22 History tablet,extended release 24 hr pantoprazole 40 mg tablet,delayed 40 mg PO DAILY 09/17/21 07/26/22 History release amlodipine 5 mg tablet 5 mg PO DAILY 07/26/22 07/26/22 History amoxicillin 875 mg-potassium 1 tablet PO BID 07/26/22 07/26/22 History clavulanate 125 mg tablet buspirone 7.5 mg tablet 7.5 mg PO TID PRN Anxiety 07/26/22 07/26/22 History fluticasone propionate 50 2 spray intranasal BID 07/26/22 07/26/22 History mcg/actuation nasal spray,suspension ibuprofen 200 mg tablet 400 mg PO Q6H PRN Pain 07/26/22 07/26/22 History Allergies Allergy/AdvReac Type Severity Reaction Status Date / Time No Known Allergies Allergy Verified 07/26/22 16:38 Vital Signs Vital Signs - 24 hr 07/26/22 16:33 07/26/22 17:29 07/26/22 17:30 Temperature 36.9 C Pulse Rate 80 117 H 112 H Respiratory Rate 18 17 12 Blood Pressure 167/87 H 162/110 H Pulse Oximetry 100 96 96 Oxygen Delivery
--- NOTE | 2022-07-27 11:40 | PM.DS ---
DS: Admitting Diagnosis Discharge Date July 27, 2022 Admitting Diagnosis SVT DS: Discharge Diagnosis Discharge Diagnosis (1) Paroxysmal supraventricular tachycardia: Code(s): I47.1 - Supraventricular tachycardia Status: Acute (2) Tobacco dependence: Code(s): F17.200 - Nicotine dependence, unspecified, uncomplicated Status: Acute DS: Summary Hospital Course Hospital Course: Patient was admitted for SVT. Heart rate size 152. Workup was unrevealing. Beta-kina on discharge. Follow Cardiology for Holter Time Spent with Patient Time attestation: Total time spent providing and/or coordinating discharge services: Exam Const: General: comfortable, no acute distress, well developed, alert, awake and average body habitus Nutritional Appearance: average body habitus Orientation/consciousness: patient oriented x3 HENMT: Head: normal to inspection, normocephalic and atraumatic Ears: hearing grossly normal bilaterally Face/Nose/Sinus: normal facial exam Face and sinus: normal facial exam Eyes: General: appearance normal, both eyes and all related structures Pupils: Equal, round and reactive pupils present EOM: EOMs intact bilaterally Neck: Neck: full ROM, no lymphadenopathy and no JVD Thyroid: thyroid normal Lymphatic: no lymphadenopathy noted Resp: Effort & Inspection: normal respiratory effort and able to speak in complete sentences Auscultation: clear to auscultation bilaterally Cardio: Jugular venous distension: no JVD Rate: regular rate Rhythm: regular rhythm Heart sounds: S1 normal heart sound present and S2 normal heart sound present : General: Yes deferred Skin: Rashes: no rashes Wounds: no wounds Neuro: General: patient oriented x3 and CN's II-XI intact bilaterally Cranial nerves: Yes CN's II-XII intact bilaterally and Yes Equal, round and reactive pupils present Cognition (Neuro): normal cognition Speech: normal speech Gait exam (Neuro): Normal gait present Motor exam (neuro): 5/5 motor strength present throughout Extrem: General: normal to inspection, full ROM, no joint enlargement and no pedal edema DS: Data Data Completed and Pending Labs on day of discharge: Labs from last 24 hours 07/27/22 07/26/22 07/26/22 09:38 20:30 18:06 WBC RBC Hgb Hct MCV MCH MCHC RDW Plt Count MPV Immature Gran % (Auto) Neut % (Auto) Lymph % (Auto) [place] % (Auto) Eos % (Auto) Baso % (Auto) Lymph # (Auto) [place] # (Auto) Eos # (Auto) Baso # (Auto) Abs Immat Gran (auto) Absolute Neuts (auto) Absolute Nucleated RBC Nucleated RBC % PT INR APTT D-Dimer Sodium Potassium Chloride Carbon Dioxide Anion Gap BUN Creatinine Estim Creat Clear Calc Estimated GFR Glucose Calcium Troponin I < 0.012 TSH 1.240 Influenza A (RT-PCR) Negative Influenza B (RT-PCR) Negative SARS-CoV-2 RNA (RT-PCR) Negative 07/26/22 07/26/22 07/26/22 18:06 18:06 18:06 WBC 11.9 H RBC 4.63 Hgb 14.8 Hct 42.7 MCV 92.2 MCH 32.0 MCHC 34.7 RDW 13.2 Plt Count 527 H MPV 8.9 Immature Gran % (Auto) 0.4 Neut % (Auto) 50.4 Lymph % (Auto) 32.0 [place] % (Auto) 15.8 H Eos % (Auto) 0.9 Baso % (Auto) 0.5 Lymph # (Auto) 3.82 H [place] # (Auto) 1.9 H Eos # (Auto) 0.1 Baso # (Auto) 0.1 Abs Immat Gran (auto) 0.05 H Absolute Neuts (auto) 6.0 Absolute Nucleated RBC 0.0 Nucleated RBC % 0.0 PT 12.0 INR 0.9 APTT 28.9 D-Dimer 1.01 H Sodium 136 L Potassium 3.6 Chloride 101 Carbon Dioxide 28 Anion Gap 7 L BUN 12 Creatinine 0.50 L Estim Creat Clear Calc 85 Estimated GFR > 60 Glucose 94 Calcium 9.1 Troponin I TSH Influenza A (RT-PCR) Influenza B (RT-PCR) SARS-CoV-2 RNA (RT-PCR) Discharge Plan Discharge Attending physician on discharg
== END 2022-07-27 12:44 | disposition home or self-care (01) ==
LOC: ANHED 20:30 → ANHIMU 21:05
PROVIDERS: Internal Medicine; Admitting Provider Internal Medicine; Emergency Provider Physician Assistant; PCP Nurse Practitioner Adult Health; Visit Provider Chiropractor
DX: I47.1 Supraventricular tachycardia (principal); R07.9 Chest pain, unspecified; J01.90 Acute sinusitis, unspecified; J44.9 Chronic obstructive pulmonary disease, unspecified; K21.9 Gastro-esophageal reflux disease without esophagitis; I10 Essential (primary) hypertension; F17.210 Nicotine dependence, cigarettes, uncomplicated; Z20.822 Contact with and (suspected) exposure to COVID-19; R94.31 Abnormal electrocardiogram [ECG] [EKG]; F10.90 Alcohol use, unspecified, uncomplicated; Z79.890 Hormone replacement therapy; Z79.1 Long term (current) use of non-steroidal anti-inflammatories (NSAID); Z79.899 Other long term (current) drug therapy
CPT/HCPCS: 36415; 71046; 71275; 80048; 84443; 84484; 85025; 85380; 85610; 85730; 87636; 93005; 93306; 96361; 96374; 99285; A9270; G0378; J0153; J7030; J7040; Q9967

== ENCOUNTER 2023-07-26 13:02 | Outpatient (CLI) | payer OTHER, SELFPAY ==
--- NOTE | ~2023-07-26 | DEXA_ITS ---
Bone Density Report Name: JOEY MO Age: 53 Sex: Female Ethnicity: White Date of : 1970 Indication: osteopenia; postmenopausal Referring Provider: BRAYAN, MIESHA Study: Bone densitometry was performed. Exam Date: July 26, 2023 Accession number: [id number] Bone Density: Region BMD T-score Z-score Classification AP Spine (L1-L4) 0.863 -1.7 -0.9 Osteopenia Femoral Neck (Left) 0.758 -0.8 0.0 Normal Total Hip (Left) 0.804 -1.1 -0.6 Osteopenia Femoral Neck (Right) 0.807 -0.4 0.4 Normal Total Hip (Right) 0.785 -1.3 -0.8 Osteopenia Total Hip Mean 0.795 -1.2 -0.7 Osteopenia World Health Organization criteria for BMD impression classify patients as: Normal (T-score at or above -1.0), Osteopenia (T-score between -1.0 and -2.5), or Osteoporosis (T-score at or below -2.5). 10-year Fracture Risk(1): Major Osteoporotic Fracture 4.2% Hip Fracture 0.2% Reported Risk Factors: [place] (), Neck BMD=0.758, BMI=25.3 (1) FRAX(R) Version 3.08. Fracture probability calculated for an untreated patient. Fracture probability may be lower if the patient has received treatment. Previous Exams: Region Exam Age BMD T-score BMD Change BMD Change Date g/cm2 vs Baseline vs Previous AP Spine(L1-L4) 07/26/2023 53 0.863 -1.7 0.020 0.052* 02/27/2021 50 0.812 -2.1 -0.031* -0.001 09/25/2018 48 0.813 -2.1 -0.030* -0.026* 09/08/2016 46 0.839 -1.9 -0.004 -0.014 08/16/2013 43 0.853 -1.8 0.010 -0.072* 04/05/2011 40 0.925 -1.1 0.082* 0.064* 01/01/2009 38 0.861 -1.7 0.018 0.018 01/13/2005 34 0.843 -1.9 Total Hip(Left) 07/26/2023 53 0.804 -1.1 -0.065* 0.002 02/27/2021 50 0.802 -1.1 -0.068* -0.008 09/25/2018 48 0.810 -1.1 -0.059* -0.056* 09/08/2016 46 0.866 -0.6 -0.004 -0.008 08/16/2013 43 0.874 -0.6 0.004 -0.036* 04/05/2011 40 0.909 -0.3 0.040* 0.067* 01/01/2009 38 0.842 -0.8 -0.027 -0.027 01/13/2005 34 0.870 -0.6 Total Hip(Right) 07/26/2023 53 0.785 -1.3 -0.076* 0.000 02/27/2021 50 0.785 -1.3 -0.076* 0.006 09/25/2018 48 0.779 -1.3 -0.082* -0.063* 09/08/2016 46 0.842 -0.8 -0.020 -0.031* 08/16/2013 43 0.873 -0.6 0.012 0.016 04/05/2011 40 0.857 -0.7 -0.004 0.015 01/01/2009 38 0.842 -0.8
--- NOTE | ~2023-07-26 | MM_ITS ---
EXAMINATION: MM screening [facility] BI w venkat HISTORY: Screening TECHNIQUE: Craniocaudal and mediolateral oblique 3-D tomosynthesis images were obtained and synthetic 2-D images were generated. CAD analysis was submitted and interpreted. COMPARISON: Comparison to multiple prior studies sequentially, with oldest reviewed study dated 10/06. BREAST PARENCHYMAL COMPOSITION: Not dense: There are scattered areas of fibroglandular density. FINDINGS: There is no evidence of suspicious mass, calcification, or architectural distortion to sugg est malignancy in either breast. There has been no suspicious interval change. IMPRESSION: 1. No mammographic evidence of malignancy. 2. Recommend routine screening mammography in one year. BI-RADS Category 1: Negative Reviewed, dictated and finalized at location A. R QUALITY ASSISTANT
== END 2023-07-26 13:03 ==
PROVIDERS: PCP Nurse Practitioner Adult Health; Visit Provider Nurse Practitioner
DX: Z12.31 Encounter for screening mammogram for malignant neoplasm of breast (principal); M85.89 Other specified disorders of bone density and structure, multiple sites
CPT/HCPCS: 77063; 77067; 77080

== ENCOUNTER 2024-02-05 19:00 | Emergency (ER) | payer OTHER, SELFPAY ==
[2024-02-05 19:01] VITALS: BP 179/94; PULSE 106; RESP 20; TEMP 36.4; O2SAT 100
--- NOTE | 2024-02-05 19:05 | ECG_ITS ---
Test Date: 2024-02-05 19:09:37 Measurements Intervals [place] Rate: 94 P: 63 DE: 169 QRS: 67 QRSD: 90 T: 57 QT: 335 QTc: 419 Interpretive Statements SINUS RHYTHM BORDERLINE ST ABNORMALITY- ANTEROLAT/INF LEADS BASELINE ARTIFACT- I, II, III, AVR, AVL, AVF, V4-V6 BORDERLINE ECG No previous ECG available for comparison Electronically Signed On 02-05-2024 19:58:40 CDT by João Aparicio D.O.
[2024-02-05 20:19] VITALS: BP 161/87; PULSE 89; RESP 16; O2SAT 100
--- NOTE | 2024-02-05 21:09 | ED.GENADULT ---
HPI - General Adult General Chief complaint: Arrhythmia/Palpitations Stated complaint: palpitations Time Seen by Provider: 02/05/24 20:24 History of Present Illness HPI narrative: Patient with history of SVT/inappropriate tachycardia on metoprolol presents here as she has been having a day of her heart rate being higher than usual to the 120s on exertion. Denies any chest pain, shortness of breath, lower extremity swelling or pain. States she has been adequately hydrated denies any other symptoms Related Data Home Medications Medication Instructions Recorded Confirmed estradiol 1 mg tablet 1 mg PO DAILY 03/23/21 07/26/22 medroxyprogesterone 5 mg tablet 5 mg PO DAILY 03/23/21 07/26/22 pantoprazole 40 mg tablet,delayed 40 mg PO DAILY 09/17/21 07/26/22 release amlodipine 5 mg tablet 5 mg PO DAILY 07/26/22 07/26/22 amoxicillin 875 mg-potassium 1 tablet PO BID 07/26/22 07/26/22 clavulanate 125 mg tablet buspirone 7.5 mg tablet 7.5 mg PO TID PRN Anxiety 07/26/22 07/26/22 fluticasone propionate 50 2 spray intranasal BID 07/26/22 07/26/22 mcg/actuation nasal spray,suspension ibuprofen 200 mg tablet 400 mg PO Q6H PRN Pain 07/26/22 07/26/22 Allergies Allergy/AdvReac Type Severity Reaction Status Date / Time No Known Allergies Allergy Verified 07/26/22 16:38 Review of Systems Review of Systems: All systems reviewed & are unremarkable except as noted in HPI and below PMFSH Past Medical History Medical History Hypertension Surgical History Surgical History No pertinent past surgical history Social History Social History Smoking packs per day: 0.5 Smoking cigarettes per day: 10.0 Years smoked: 25 Smoking pack-years: 12.50 Smoking status: Current every day smoker Tobacco type: cigarettes Alcohol intake: current Drinks per week: 8 Alcohol use details: 2-3 drinks a couple times per week Substance use: never Substance use type: does not use Lack of Transportation: No Lack of Food: Never True Current Housing: I Have Housing Concerned About Future Housing: No Difficulty Paying Gas/Electric Bills: No Difficulty Paying for Meds: No Currently Unemployed: No Education: High School Diploma/GED Difficulty w/ Childcare or Family Care: No Living arrangements: with family Additional living arrangements comments: spouse Spiritual care concerns: No Exam Narrative: EXAMINATION OF ORGAN SYSTEMS/BODY AREAS: Constitutional: Vital signs per nursing GENERAL:[No acute distress, non-toxic appearing.] HEAD: Normal with no signs of head trauma. EYES: EOMI, conjunctiva normal ENT: Hearing grossly intact LUNGS: Nonlabored breathing. HEART: [Regular rate and rhythm] ABD: No distension EXT: Normal range of motion SKIN: [No rashes or lesions.] NEURO: [Alert and oriented x 3. No gross focal sensory or strength deficits.] PSYCH: Normal affect Course Vital Signs Vital signs: Vital Signs Temperature 97.5 F L 02/05/24 19:01 Pulse Rate 106 H 02/05/24 19:01 Respiratory Rate 20 02/05/24 19:01 Blood Pressure 179/94 H 02/05/24 19:01 Pulse Oximetry 100 02/05/24 19:01 Oxygen Delivery Room Air 02/05/24 19:01 Temperature 97.5 F L 02/05/24 19:01 Pulse Rate 87 02/05/24 22:20 Respiratory Rate 16 02/05/24 22:20 Blood Pressure 125/72 02/05/24 22:20 Pulse Oximetry 100 02/05/24 22:20 Oxygen Delivery Room Air 02/05/24 19:01 Medical Decision Making [facility] Narrative Medical decision making narrative: Patient concerned about her heart rate being more elevated than usual, she was diagnosed with tachycardia during inpatient stay here and started on metoprolol year ago, follows up with Cardiology, denies any chest pain or shortness of breath, swelling to her legs or any DVT symptoms on exam,
[2024-02-05 21:16] VITALS: BP 117/83; PULSE 80; RESP 16; O2SAT 99
[2024-02-05] MEDS: LACTATED RINGERS 1,000 ML 999 ML IV CONT (21:17)
[2024-02-05 21:26] LABS: Basophils Percent Auto 0.4 % (0.2-1.2); Eosinophils Absolute Auto 0.1 K/mm3 (0-0.3); Eosinophils Percent Auto 0.5 % (0-4.4); Hematocrit 40.6 % (37.0-47.0); Hemoglobin 14.2 g/dL (12.0-15.0); Immature Granulocyte Absolute 0.03 K/mm3 (0.00-0.031); Immature Granulocyte Percent A 0.3 % (0-0.5); Lymphocytes Absolute Auto 2.26 K/mm3 (0.9-3.2); Lymphocytes Percent Auto 23.8 % (18.3-44.2); Mean Corpuscular Hemoglobin 32.2 pg (26-34); Mean Corpuscular Volume 92.1 fl (80-100); Mean Platelet Volume 8.8 fl (7.4-10.4); Monocytes Absolute Auto 1.2 K/mm3 (0.1-0.6); Monocytes Percent Auto 12.1 % (2.6-8.5); Neutrophils Percent Auto 62.9 % (45.5-73.1); Platelet Count Result 424 k/mm3 (150-375); Red Blood Count 4.41 M/mm3 (4.2-5.4); Red Cell Distribution Width 13.2 % (11.5-14.5); White Blood Count 9.5 K/mm3 (4.5-10.0)
[2024-02-05 21:34] LABS: Anion Gap 11 mmol/L (4-12); Blood Urea Nitrogen 8 mg/dL (7-17); Calcium 9.4 mg/dL (8.4-10.2); Carbon Dioxide 23 mmol/L (22-30); Chloride 98 mmol/L (98-107); Estimated CRCL calculation 71 ml/min; Estimated Glomerular Filt Rate > 60; Glucose 102 mg/dL (65-110); Potassium 3.8 mmol/L (3.4-5.0); Sodium 132 mmol/L (137-145)
[2024-02-05 21:46] LABS: Troponin I < 0.012 ng/mL (0.000-0.034)
[2024-02-05 22:20] VITALS: BP 125/72; PULSE 87; RESP 16; O2SAT 100
== END 2024-02-05 22:37 | disposition home or self-care (01) ==
PROVIDERS: Emergency Provider Emergency Medicine; PCP Nurse Practitioner Adult Health
DX: R00.0 Tachycardia, unspecified (principal); R00.2 Palpitations; I10 Essential (primary) hypertension; F17.210 Nicotine dependence, cigarettes, uncomplicated
CPT/HCPCS: 36415; 80048; 84484; 85025; 93005; 96360; 99284; J7120

== ENCOUNTER 2024-03-22 08:12 | Emergency (ER) | payer OTHER, SELFPAY ==
[2024-03-22] VITALS (9 sets, daily range): BP systolic 106–147; BP diastolic 72–75; PULSE 73–91; RESP 16–20; TEMP 36.4; O2SAT 96–100
--- NOTE | ~2024-03-22 | XR_ITS ---
XR chest 2V Ordering provider: Bradley Collins MD History: 53 years Female with . CHEST PRESSURE X2-3 DAYS, CURRENT SMOKER, HX HYPERTENSION . Comparison: July 26, 2022 FINDINGS: MEDIASTINUM: The cardiac silhouette is not enlarged. LUNGS: No infiltrates, effusions or pneumothorax. OTHER: No free air under the diaphragm. IMPRESSION: No acute cardiopulmonary pathology. Reviewed, dictated and finalized at location A.
--- NOTE | 2024-03-22 08:17 | ECG_ITS ---
Test Date: 2024-03-22 08:22:04 Measurements Intervals [place] Rate: 85 P: 72 AL: 175 QRS: 66 QRSD: 88 T: 62 QT: 342 QTc: 407 Interpretive Statements SINUS RHYTHM POSSIBLE LEFT ATRIAL ENLARGEMENT [-0.1mV P WAVE IN V1/V2] Compared to ECG 02/05/2024 19:09:37 No significant changes Electronically Signed On 03-22-2024 09:43:58 CDT by Teena Hartmann M.D.
[2024-03-22] MEDS: ASPIRIN 81 MG CHEWABLE TABLET 324 MG PO (08:27)
[2024-03-22 08:38] LABS: Basophils Percent Auto 0.3 % (0.2-1.2); Eosinophils Percent Auto 0.3 % (0-4.4); Hematocrit 42.1 % (37.0-47.0); Hemoglobin 14.1 g/dL (12.0-15.0); Immature Granulocyte Absolute 0.04 K/mm3 (0.00-0.031); Immature Granulocyte Percent A 0.3 % (0-0.5); Lymphocytes Absolute Auto 2.33 K/mm3 (0.9-3.2); Lymphocytes Percent Auto 20.1 % (18.3-44.2); Mean Corpuscular HGB Conc 33.5 g/dl (32-36); Mean Corpuscular Hemoglobin 31.4 pg (26-34); Mean Corpuscular Volume 93.8 fl (80-100); Mean Platelet Volume 8.9 fl (7.4-10.4); Monocytes Absolute Auto 1.1 K/mm3 (0.1-0.6); Monocytes Percent Auto 9.3 % (2.6-8.5); Neutrophils Absolute Auto 8.1 K/mm3 (1.3-6.7); Neutrophils Percent Auto 69.7 % (45.5-73.1); Platelet Count Result 411 k/mm3 (150-375); Red Blood Count 4.49 M/mm3 (4.2-5.4); Red Cell Distribution Width 13.3 % (11.5-14.5); White Blood Count 11.6 K/mm3 (4.5-10.0)
[2024-03-22 08:46] LABS: Alanine Aminotransferase 35 U/L (6-35); Albumin Level 4.8 g/dL (3.5-5.1); Alkaline Phosphatase 81 U/L (38-126); Anion Gap 10 mmol/L (4-12); Aspartate Amino Transferase 29 U/L (14-36); Bilirubin,Total 0.5 mg/dL (0.2-1.3); Blood Urea Nitrogen 10 mg/dL (7-17); Calcium 9.4 mg/dL (8.4-10.2); Carbon Dioxide 23 mmol/L (22-30); Chloride 99 mmol/L (98-107); Estimated CRCL calculation 62 ml/min; Estimated Glomerular Filt Rate > 60; Glucose 116 mg/dL (65-110); Lipase 75 U/L (23-300); Potassium 4.1 mmol/L (3.4-5.0); Sodium 132 mmol/L (137-145)
[2024-03-22 08:47] LABS: INR 0.9
[2024-03-22 08:54] LABS: Partial Thromboplastin Time 29.1 Seconds (22.3-36.8)
[2024-03-22 08:57] LABS: Troponin I < 0.012 ng/mL (0.000-0.034)
--- NOTE | 2024-03-22 09:13 | ED_ITS ---
HPI - Chest Pain General Chief Complaint: Chest Pain Stated Complaint: chest pressure Time Seen by Provider: 03/22/24 08:21 Source: patient Mode of arrival: ambulatory Limitations: no limitations History of Present Illness HPI narrative: 53-year-old with a history of COPD, SVT here with complaints of left-sided chest discomfort for past few days. Patient states that she had cold symptoms for past 1 week however the past few days she feels like pressure behind her left breast. She denies any cough or shortness of breath. No previous history of CAD. MD complaint: chest discomfort Pertinent past history: other (COPD) Onset (ago): week(s) (1) Timing of current episode: constant Pain location: other (() Pain radiation: none Severity: mild Relieving factors: nothing Exacerbating factors: nothing Treatment prior to arrival: none Risk Factors Coronary artery disease risk factors: none Thoracic aortic dissection risk factors: none Related Data Home Medications Medication Instructions Recorded Confirmed estradiol 1 mg tablet 1 mg PO DAILY 03/23/21 07/26/22 medroxyprogesterone 5 mg tablet 5 mg PO DAILY 03/23/21 07/26/22 pantoprazole 40 mg tablet,delayed 40 mg PO DAILY 09/17/21 07/26/22 release amlodipine 5 mg tablet 5 mg PO DAILY 07/26/22 07/26/22 amoxicillin 875 mg-potassium 1 tablet PO BID 07/26/22 07/26/22 clavulanate 125 mg tablet buspirone 7.5 mg tablet 7.5 mg PO TID PRN Anxiety 07/26/22 07/26/22 fluticasone propionate 50 2 spray intranasal BID 07/26/22 07/26/22 mcg/actuation nasal spray,suspension ibuprofen 200 mg tablet 400 mg PO Q6H PRN Pain 07/26/22 07/26/22 Allergies Allergy/AdvReac Type Severity Reaction Status Date / Time No Known Allergies Allergy Verified 03/22/24 08:13 Review of Systems 2 Review of Systems: All systems reviewed & are unremarkable except as noted in HPI and below Constitutional: Constitutional: Reports no additional constitutional complaints Eyes: Eyes: Reports no additional eye complaints ENT: Reports system reviewed and no additional complaints, except as documented Cardiovascular: Cardiovascular: Reports as per HPI Respiratory: Respiratory: Reports no additional respiratory complaints Musculoskeletal: Musculoskeletal: Reports no additional musculoskeletal complaints Integumentary/Breasts: Skin/Breast: Reports system reviewed and no additional complaints, except as docu Neurologic: Reports system reviewed and no additional complaints, except as documented Psychiatric: Psychiatric: Reports no additional psychiatric complaints PMFSH Past Medical History Medical History Hypertension Surgical History Surgical History No pertinent past surgical history Social History Social History (System 02/07/24 @ 11:25 by uQe Isaacs) Smoking packs per day: 0.5 Smoking cigarettes per day: 10.0 Years smoked: 25 Smoking pack-years: 12.50 Smoking status: Current every day smoker Tobacco type: cigarettes Alcohol intake: current Drinks per week: 8 Alcohol use details: 2-3 drinks a couple times per week Substance use: never Substance use type: does not use Lack of Transportation: No Lack of Food: Never True Current Housing: I Have Housing Concerned About Future Housing: No Difficulty Paying Gas/Electric Bills: No Difficulty Paying for Meds: No Currently Unemployed: No Education: High School Diploma/GED Difficulty w/ Childcare or Family Care: No Living arrangements: with family Additional living arrangements comments: spouse Spiritual care concerns: No Exam Narrative: GENERAL: Well-appearing, well-nourished, and in no acute distress. HEAD: Normocephalic, atraumatic. EYES: PERRLA and EOMI. ENT: Nares clear, no rhinorrhea NECK: Supple. CHEST: Clear to auscultation. No respiratory distress. HEART: Regular rate and rhythm. No murmur heard. Normal peripheral pulses. ABDOMEN: Soft, nontender, nondistended, normal active bowel sounds. EXTREMITIES: Normal range of motion. No edema. SKIN: Warm, dry, no rash. NEURO: No focal deficits. Alert and oriented x3. PSYCH: Normal mood and affect. Course Course Emergency Course: Notified patient about her lab work, EKG and chest x-ray findings cause of her pain most likely musculoskeletal etiology advised to to continue home medications, follow up with her primary doctor Vital Signs Vital signs: Vital Signs Temperature 36.4 C L 03/22/24 08:18 Pulse Rate 89 03/22/24 08:18 Respiratory Rate 16 03/22/24 08:18 Blood Pressure 147/75 H 03/22/24 08:18 Pulse Oximetry 98 03/22/24 08:18 Oxygen Delivery Room Air 03/22/24 08:18 Temperature 36.4 C L 03/22/24 08:18 Pulse Rate 85 03/22/24 08:31 Respiratory Rate 16 03/22/24 08:18 Blood Pressure 147/75 H 03/22/24 08:18 Pulse Oximetry 98 03/22/24 08:18 Oxygen Delivery Room Air 03/22/24 08:18 MDM - Chest Pain MDM Narrative Medical decision making narrative: 53-year-old with a history of SVT with decent viral syndrome now having chest pressure symptoms on the left side to cardiac workup , her EKG is unremarkable. Differential Diagnosis Differential diagnosis: Likely stable angina, unstable angina pectoris, atypical chest pain and costochondritis Medical Records Data Attestation: I reviewed the patient's medical records. Lab Data Attestation: I reviewed the patient's lab results. 03/22/24 08:27 03/22/24 08:27 Labs: Lab Results 03/22/24 Range/Units 08:27 WBC 11.6 H (4.5-10.0) K/mm3 RBC 4.49 (4.2-5.4) M/mm3 Hgb 14.1 (12.0-15.0) g/dL Hct 42.1 (37.0-47.0) % MCV 93.8 (80-100) fl MCH 31.4 (26-34) pg MCHC 33.5 (32-36) g/dl RDW 13.3 (11.5-14.5) % Plt Count 411 H (150-375) k/mm3 MPV 8.9 (7.4-10.4) fl Immature Gran % (Auto) 0.3 (0-0.5) % Neut % (Auto) 69.7 (45.5-73.1) % Lymph % (Auto) 20.1 (18.3-44.2) % [place] % (Auto) 9.3 H (2.6-8.5) % Eos % (Auto) 0.3 (0-4.4) % Baso % (Auto) 0.3 (0.2-1.2) % Lymph # (Auto) 2.33 (0.9-3.2) K/mm3 [place] # (Auto) 1.1 H (0.1-0.6) K/mm3 Eos # (Auto) 0.0 (0-0.3) K/mm3 Baso # (Auto) 0.0 (0.0-0.1) K/mm3 Abs Immat Gran (auto) 0.04 H (0.00-0.031) K/mm3 Absolute Neuts (auto) 8.1 H (1.3-6.7) K/mm3 Absolute Nucleated RBC 0.000 (0.0-0.012) K/mm3 Nucleated RBC % 0.0 (0.0-0.2) % PT 13.0 (11.1-14.7) Seconds INR 0.9 APTT 29.1 (22.3-36.8) Seconds Sodium 132 L (137-145) mmol/L Potassium 4.1 (3.4-5.0) mmol/L Chloride 99 (98-107) mmol/L Carbon Dioxide 23 (22-30) mmol/L Anion Gap 10 (4-12) mmol/L BUN 10 (7-17) mg/dL Creatinine 0.70 (0.7-1.0) mg/dL Estim Creat Clear Calc 62 ml/min Estimated GFR > 60 (59 - ) Glucose 116 H (65-110) mg/dL Calcium 9.4 (8.4-10.2) mg/dL Total Bilirubin 0.5 (0.2-1.3) mg/dL AST 29 (14-36) U/L ALT 35 (6-35) U/L Alkaline Phosphatase 81 (38-126) U/L Troponin I < 0.012 (0.000-0.034) ng/mL Total Protein 9.0 H (6.3-8.2) g/dL Albumin 4.8 (3.5-5.1) g/dL Lipase 75 (23-300) U/L Imaging Data Radiologist's impression: ITS Impressions Chest X-Ray 03/22/24 08:46 IMPRESSION: No acute cardiopulmonary pathology. ECG Data EKG #1: ECG completion date: 03/22/24 ECG completion time: 08:22 EKG Interpretation: normal rate (85), no ectopy, non-specific ST changes and NL axis Discharge Plan Discharge Clinical Impression: Chest pain, non-cardiac Patient Disposition: Home, Self-Care Condition: Stable Instructions: Chest Pain (ED) Additional Instructions: continue home medications, follow with your doctor. Prescriptions: No Action pantoprazole 40 mg tablet,delayed release (DR/EC) 40 mg PO DAILY medroxyprogesterone 5 mg tablet 5 mg PO DAILY estradiol 1 mg tablet 1 mg PO DAILY amlodipine 5 mg tablet 5 mg PO DAILY ibuprofen 200 mg Tablet 400 mg PO Q6H PRN (Reason: Pain) buspirone 7.5 mg tablet 7.5 mg PO TID PRN (Reason: Anxiety) fluticasone propionate 50 mcg/actuation spray,suspension 2 spray INTRANASAL BID amoxicillin-pot clavulanate 875-125 mg tablet 1 tablet PO BID Rx Instructions: for 10 days metoprolol succinate 50 mg Tablet Extended Release 24 Hr 50 mg PO DAILY 30 Days Qty: 30 0RF Follow-up/Referrals: Juan C,Shantel Hurt NP [Primary Care Provider] - Time of Disposition: 09:38
== END 2024-03-22 09:55 | disposition home or self-care (01) ==
PROVIDERS: Emergency Provider Family Medicine; PCP Nurse Practitioner Adult Health
DX: R07.89 Other chest pain (principal); J44.9 Chronic obstructive pulmonary disease, unspecified; I10 Essential (primary) hypertension; F17.210 Nicotine dependence, cigarettes, uncomplicated
CPT/HCPCS: 36415; 71046; 80053; 83690; 84484; 85025; 85610; 85730; 93005; 99284; A9270

== ENCOUNTER 2024-09-18 06:38 | Emergency (ER) | payer OTHER, SELFPAY ==
--- NOTE | ~2024-09-18 | XR_ITS ---
Clinical Indication: Chest pain PA and lateral views of the chest: Comparison: 03/22/2024 Findings: The lungs are clear, without evidence of focal consolidation or pleural effusion. Cardiome diastinal silhouette is within normal limits. Bones and soft tissues are unremarkable. Impression: Normal chest. Reviewed, dictated and finalized at location . Impression: Normal chest.
--- OUTSIDE RECORDS SUMMARY | 2024-09-18 06:39 | XMS_ITS | Clinical Summary ---
Author Organization [facility] Address [address] [place] [address] Care Team Providers Care Software Trainer Name Role Phone Yomaira Charles NP Primary Care Provider [phone] Allergies No known active allergies Medications medroxyPROGESTERone (PROVERA) 5 mg tablet Take 1 tablet (5 mg total) by mouth as needed 1 Active busPIRone (BUSPAR) 7.5 mg tabletIndications:Gen eralized Anxiety Disorder Take 1 tablet (7.5 mg total) by mouth 3 (three) times a day as needed (anxiety) 90 tablet 1 3 Active estradioL (ESTRACE) 1 mg tablet Take 1 tablet (1 mg total) by mouth daily 3 Active metoprolol XL (TOPROL-XL) 100 mg 24 hr tabletIndications:PSV T (paroxysmal supraventricular tachycardia) Take 1 tablet (100 mg total) by mouth daily 90 tablet 3 4 02/13/20 25 Active lisinopriL (PRINIVIL,ZESTRIL) 10 mg tablet TAKE 1 TABLET(10 MG) BY MOUTH DAILY 30 tablet 11 4 Active amLODIPine (NORVASC) 10 mg tabletIndications:Zaida fahad hypertension TAKE 1 TABLET(10 MG) BY MOUTH DAILY 90 tablet 3 4 Active cyclobenzaprine (FLEXERIL) 10 mg tabletIndications:Mus bud Spasm Take 1 tablet (10 mg total) by mouth 3 (three) times a day as needed for muscle spasms 90 tablet 1 5 06/21/19 26 Active Active Problems Problem Noted Date Diagnosed Date BMI 25.0-25.9,adult 06/21/2024 Assessment & Plan (06/21/2024 3:08 PM STATE GAME WARDEN): Discussed the patient's BMI. The BMI is above average. BMI management plan is completed. BMI Follow-up includes: nutrition counseling, exercise counseling and education provided. Breast pain, left 06/21/2024 Assessment & Plan (06/21/2024 3:25 PM STATE GAME WARDEN): This is a significant, separately identifiable problem that was evaluated and managed on the same day as the wellness exam SVT (supraventricular tachycardia) 03/11/2023 Acute non-recurrent ethmoidal sinusitis 07/23/19 Assessment & Plan (07/23/2022 11:04 AM STATE GAME WARDEN): Augmentin ordered with Medrol- take as prescribed Encouraged to call and be seen if no improvement after Abx is completed Mucinex D -use as directed OTC Delsym for cough as directed OTC Tylenol for ear discomfort Good oral and hand hygiene Humidifier as needed Patient educated on new medications and side effects Ordered Fluconazole x 1 dose for prophylaxis after Abx use if needed Postnasal drip 07/23/2022 Assessment & Plan (07/23/2022 10:51 AM STATE GAME WARDEN): Push fluids- water Fluticasone ordered- use as directed Non-recurrent acute serous otitis media of both ears 07/23/2022 Assessment & Plan (07/23/2022 11:02 AM STATE GAME WARDEN): Avoid getting water in ears Avoid cleaning ears with q-tips or other objects OTC Tylenol for pain Generalized anxiety disorder 07/08/2022 Assessment & Plan (07/23/2022 10:59 AM STATE GAME WARDEN): Moderately improved with Buspirone- will continue with medication as directed Assessment & Plan (07/08/2022 11:46 AM STATE GAME WARDEN): Ordered Buspirone 7.5 mg TID prn- Patient educated on anxiety and how anxiety can possibly increase blood pressure. Acute nonintractable headache 07/06/2022 Assessment & Plan (07/06/2022 9:47 AM STATE GAME WARDEN): OTC Tylenol as directed Continue Ibuprofen as directed Monitor BP Patient educated on hypertension and relation to possible cause of increased headaches Encouraged to have yearly eye exams Hypertension, essential 07/05/2022 Assessment & Plan (07/23/2022 10:58 AM STATE GAME WARDEN): Blood pressure stable, much improved Continue current medications Amlodipine and Metoprolol without change Continue to monitor occasionally at home Stay well hydrated Assessment & Plan (07/08/2022 11:51 AM STATE GAME WARDEN): Continue current metoprolol 25 mg Increase amlodipine to 5 mg Continue to monitor BP- BP goal <130/80 Plan to add Lisinopril 10 mg next visit if no improvement Recommend DASH diet, heart-healthy lifestyle, exercise. Discussed the risks of adding adjunct medication if BP not controlled Assessment & Plan (07/06/2022 9:50 AM STATE GAME WARDEN): Monitor BP at home-log and send results to this office Patient encouraged to call BP reports in 2 weeks Continue Metoprolol 25 mg daily Add Amlodipine 2.5 mg Recommend DASH diet, heart-healthy lifestyle, exercise. Discussed the risks of hypertension not being controlled and the need to increase or add adjunct medication if needed to help better control BP. Screening for cholesterol level 07/05/2022 Assessment & Plan (07/06/2022 9:42 AM STATE GAME WARDEN): Return to office in 3 months for annual exam Labs ordered Medications reviewed and refilled History of carpal tunnel release 02/20/2020 Chronic bilateral low back pain without sciatica 12/27/2019 Tobacco abuse 12/20/2017 Assessment & Plan (07/06/2022 9:46 AM STATE GAME WARDEN): Keep scheduled appointment for acupuncture for smoking cessation plans Chronic right shoulder pain 12/20/2017 BMI 22.0-22.9, adult 08/22/2017 Assessment & Plan (08/13/2019 4:46 PM CDT): Recommended patient to continue to increase heart healthy diet with adequate fruits, vegetables, and plenty of water along with mild-moderate daily exercise as tolerated. Assessment & Plan (08/22/2017 2:31 PM CDT): Recommended patient to continue to increase heart healthy diet with adequate fruits, vegetables, and plenty of water along with mild-moderate daily exercise as tolerated. Osteopenia 12/16/2016 Assessment & Plan (07/06/2022 9:45 AM STATE GAME WARDEN): Follow up with Sfdc Technical Architect as scheduled for bone density scan Continue with routine bone density screening Daily exercise Resolved Problems Problem Noted Date Diagnosed Date Resolved Date Polymyalgia 08/13/2019 12/27/2019 Assessment & Plan (08/13/2019 4:45 PM CDT): Due to edema, erythema and pain. Will check RA, ESR, CRP, CBC and ROBIN. We will check these labs today. In addition prescription sent for prednisone taper 60mg. Will notify patient once results are received. Patient verbalized understanding and agreed to plan of care at this time. Subacute maxillary sinusitis 08/22/2017 12/20/2017 Assessment & Plan (08/22/2017 2:43 PM CDT): Supple prescription for amoxicillin that was prescribed year more go, recommended doxycycline twice daily for 10 day course to assist with sinusitis relief along with better control of allergies. Follow-up in the interim for any worsening in symptoms or after completion of antibiotic regimen if there is little improvement symptoms Acute allergic rhinitis 08/22/201711/28 Assessment & Plan (08/22/2017 2:42 PM CDT): Recommended antihistamine use once daily needs were given in written for patient to obtain [id number], long Flonase nasal spray once daily for both allergic rhinitis control as well as acute sinusitis. Encounter for wellness examination in adult 12/16/2016 12/20/2017 Mass of breast 08/22/2013 12/27/2019 Hypothyroidism 08/20/2013 12/16/2016 Overview (09/03/2016): Hypothyroidism Encounters Date Type Department Care Team Description 06/22/2024 Telephone [facility] Family Medicine [address] [place] [address] Yomaira Charles, BRAN 06/21/2024 3:00 PM STATE GAME WARDEN Office Visit [facility] Medical [facility] Internal Medicine at [address] [place] [address] Yomaira Charles, BRAN Physical exam, annual (Primary Dx); BMI 25.0-25.9,adult; Chronic bilateral low back pain without sciatica; Breast pain, left; Hypertension, essential; Screening for cholesterol level; Screening for thyroid disorder from Last 3 Months Immunizations Immunization Administration Dates Next Due Influenza, Quadrivalent, Paula l Culture-based MDCK, Preservative Free, Antibiotic Free, Intramuscular 06/08/2021 Influenza, Quadrivalent, Spl it, Preservative Free, Intramuscular 03/04/2022,02/19/2020 Influenza, Unspecified 07/08/2022(Deferr ed: Patient Refused),12/27/2019(Deferred: Patient Refused),08/13/2019(Deferred: Patient Refused),02/27/2019(Deferred: Patient Refused),09/14/2018(Deferred: Patient ill today) Tdap 07/24/2007 Surgical History Surgery Date Site/Laterality Comments OTHER SURGICAL HISTORY 2007 bunion on foot: surgery 2007&2009 OTHER SURGICAL HISTORY T & A CARPAL TUNNEL RELEASE Carpal tunnel release Medical History Medical History Date Comments Hx Other Medical bunion on foot Hx Other Medical 02-[place] Hx Other Medical 01-[employer] Osteoporosis Hypertension Family History Medical History Relation Name Comments Other Brother 2 Alive and well; Hypertension Brother 3 Stefan Kidney disease Brother 4 Stefan Carrasco Hypertension Father Nigel Hypertension; Other Father Nigel Alive and well; Other Mother Alive and well; Other Other 1 No family histo ry of Cancer; Other Other 2 No family histo ry of Diabetes mellitus; Other Other 3 No family histo ry of Heart disease; Relation Name Status Comments Brother 1 Alive Brother 2 Brother 3 Stefan Brother 4 Stefan Carrasco Father Nigel Alive Mother Alive Other 1 Other 2 Other 3 Social History Tobacco Use Types Packs/Day Years Used Date Smoking Tobacco: Every Day Cigarettes 0.5 15 Started: 08/08/2007; Last attempted to quit: 08/07/2022 Smokeless Tobacco: Never Tobacco Cessation:Ready to Q uit: Not Asked; Counseling Given: Not Answered Comments:Smoking History Packs/day: 10 Cigarettes Started smoking again 6 per day Alcohol Use Standard Drinks/Week Comments Yes 0 (1 standard drink = 0.6 oz pur e alcohol) AUDIT-C Answer Date Recorded Q1: How often do you have a drink containing alc ohol? Monthly or less 06/21/2024 Q2: How many drinks containi ng alcohol do you have on a typical day when you are drinking? 1 or 2 06/21/2024 Frequency of Binge Drinking Not on file 05/31 PHQ-2 Answer Date Recorded PHQ-2 Total Score (If total score is 3 or more points, staff should administer the PHQ-9) 0 06/21/2024 Comments Unknown Sex and Gender Information Value Date Recorded Sex Assigned at Not on file Legal Sex Female 7:45 PM STATE GAME WARDEN Gender Identity Female 04/17/2021 6:22 AM STATE GAME WARDEN Sexual Orientation Not on file Obstetrics History Last Filed Vital Signs Vital Sign Reading Time Taken Comments Blood Pressure 114/70 06/21/2024 3:07 PM STATE GAME WARDEN Pulse 79 06/21/2024 3:07 PM STATE GAME WARDEN Temperature 36.8 C (98.3 F) 06/21/2024 3:07 PM STATE GAME WARDEN Respiratory Rate 16 07/23/2022 10:2 7 AM STATE GAME WARDEN Oxygen Saturation 98% 06/21/2024 3:07 PM STATE GAME WARDEN Inhaled Oxygen Concentration - - Weight 60.6 kg (133 lb 11.2 oz) 06/21/2024 3:07 PM STATE GAME WARDEN Height 154.9 cm (5' 1 ) 06/21/2024 3:07 PM STATE GAME WARDEN Body Mass Index 25.26 06/21/2024 3:07 PM STATE GAME WARDEN Plan of Treatment Health Maintenance Due Date Last Done Comments Cervical Cancer Screening 1972 Hepatitis C Screening 1972 Hepatitis B Screening 1990 Pneumococcal vaccine <65 (1 of 2 - PCV) 1991 DTaP/Tdap/Td Vaccine (2 - Td or Tdap) 07/24/2017 07/24/2007 Osteoporosis Screening-Bone Density Scan 09/25/2020 09/25/2018, 09/25/2018, 02/28/2015 Breast Cancer Screening-Mammogram 02/27/2022 02/27/2021, 06/20/2018, 06/20/2018, Additional history exists Zoster Vaccine (1 of 2) 2022 Covid-19 Vaccine (4 - 2023-2 5 season) 2024 06/08/2021, 08/20/2020, 07/29/2020 Influenza Vaccine (Season Ended) 2025 03/04/2022, 06/08/2021, 02/19/2020 Depression Screening 06/21/2025 06/21/2024, 07/23/2022, 07/06/2022, Additional history exists Regular Well Visit/Exam 18-64 06/21/2025, 12/29/2020, 12/27/2019, Additional history exists Colon Cancer Screening-Colonoscopy 04/07/20312020 Procedures Procedure Name Priority Date/Time Associated Diagnosis Comments TSH Routine 06/30/2024 9:44 AM STATE GAME WARDEN Screening for thyroid disorder LIPID PANEL Routine 06/30/2024 9:44 AM STATE GAME WARDEN Screening for cholesterol level COMPREHENSIVE METABOLIC PANEL Routine 06/30/2024 9:44 AM STATE GAME WARDEN Hypertension, essential COLONOSCOPY Routine 04/07/2021 SCREENING MAMMOGRAM BILATERAL W BRENT Schedule Routine, Read Routine (OP Routine) 02/27/2021 HM DEXA SCAN Routine 09/25/2018 from Last 3 Months or Most Recently Relevant to Health Maintenance Results * TSH (06/30/2024 9:44 AM STATE GAME WARDEN) TSH 1.580 0.450 - 4.500 uIU/mL [facility] - 01 Blood 06/30/2024 9:44 AM STATE GAME WARDEN 06/30/2024 Narrative [facility] - 07/01/2024 7:35 AM STATE GAME WARDEN Performed at: [facility] [id number] Television News Anchor: Gus Coronado PhD, Phone: [phone] Yomaira Charles ASSOCIATE PROFESSOR OF ART LAB BLOOD ORDERABLES Final Re sult Performing Organization Address [facility] de Phone Number [facility] - * (ABNORMAL) Lipid panel (06/30/2024 9:44 AM STATE GAME WARDEN) Cholesterol 207(H) 100 - 199 mg/dL [facility] - 01 Triglycerides 61 0 - 149 mg/dL [facility] - 01 HDL Cholesterol 58 >39 mg/dL [facility] - 01 VLDL 11 5 - 40 mg/dL [facility] - 01 LDL, calculated 138(H) 0 - 99 mg/dL [facility] - 01 Blood 06/30/2024 9:44 AM STATE GAME WARDEN 06/30/2024 Narrative [facility] - 07/01/2024 7:35 AM STATE GAME WARDEN Performed at: [facility] [id number] Television News Anchor: Gus Coronado PhD, Phone: [phone] Yomaira Charles ASSOCIATE PROFESSOR OF ART LAB BLOOD ORDERABLES Final Re sult Performing Organization Address [facility] Phone Number [facility] - * Comprehensive metabolic panel (06/30/2024 9:44 AM STATE GAME WARDEN) Glucose 88 70 - 99 mg/dL [facility] - 01 BUN 10 6 - 24 mg/dL [facility] - 01 Creatinine, Serum 0.77 0.57 - 1.00 mg/dL [facility] - 01 eGFR 93 >59 mL/min/1.73 [facility] - 01 BUN/creat ratio 13 9 - 23 [facility] - 01 Sodium 135 134 - 144 mmol/L [facility] - 01 Potassium, sr 4.6 3.5 - 5.2 mmol/L [facility] - 01 Chloride 101 96 - 106 mmol/L [facility] - 01 CO2 21 20 - 29 mmol/L [facility] - 01 Calcium 9.7 8.7 - 10.2 mg/dL [facility] - 01 Protein, sr 7.3 6.0 - 8.5 g/dL [facility] - 01 Albumin 4.4 3.8 - 4.9 g/dL [facility] - 01 Globulin, Total 2.9 1.5 - 4.5 g/dL [facility] - 01 Bilirubin, Total 0.4 0.0 - 1.2 mg/dL [facility] - 01 Alk phos 82 44 - 121 IU/L [facility] - 01 AST 16 0 - 40 IU/L [facility] - 01 ALT 12 0 - 32 IU/L [facility] - 01 Blood 06/30/2024 9:44 AM STATE GAME WARDEN 06/30/2024 Narrative [facility] - 07/01/2024 9:35 AM STATE GAME WARDEN Performed at: - [facility] [id number] Television News Anchor: Gus Coronado PhD, Phone: [phone] Yomaira Charles ASSOCIATE PROFESSOR OF ART LAB BLOOD ORDERABLES Final Re sult [facility] - 01 * Colonoscopy (04/07/2021) Anatomical Region Laterality Modality Other Historical Provider ENDOSCOPY PROCEDURES Vianca l Result * Screening Mammogram Bilateral W Brent (02/27/2021) Anatomical Region Laterality Modality Breast Bilateral Mammography 02/27/2021 Historical Provider IMG MAMMO PROCEDURES Vianca l Result * DEXA SCAN (09/25/2018) DEXA Scan Unknown Historical Provider HEALTH MAINTENANCE Final Result from Last 3 Months or Most Recently Relevant to Health Maintenance Insurance [facility] CHOICE PLUS [facility] [employer] Care Teams Software Trainer Relationship Specialty Start Date End Date Yomaira Charles NP [address] [address] PCP - General Internal Medicine 06/21/24
--- OUTSIDE RECORDS SUMMARY | 2024-09-18 06:39 | XMS_ITS | Referral Summary ---
Author Organization [facility] Address [address] [place] [address] Care Team Providers Care Change Control Coordinator Name Role Phone Yomaira Charles SPECIFICATIONS WRITER Primary Care Provider [phone] Encounters Date Type Department Care Team Description 06/22/2024 Telephone [facility] Family Medicine [address] [place] [address] [place] [address] Yomaira Charles NP 06/21/2024 3:00 PM DEPLOYMENT SPECIALIST Office Visit [facility] Medical [facility] Internal Medicine at [address] [place] [address] Yomaira Charles NP Physical exam, annual (Primary Dx); BMI 25.0-25.9,adult; Chronic bilateral low back pain without sciatica; Breast pain, left; Hypertension, essential; Screening for cholesterol level; Screening for thyroid disorder from Last 3 Months Allergies No known active allergies Medications medroxyPROGESTERone [...] 06/21/2024 Assessment & Plan (06/21/2024 3:08 PM DEPLOYMENT SPECIALIST): Discussed the patient's BMI. The BMI is above average. BMI management plan is completed. BMI Follow-up includes: nutrition counseling, exercise counseling and education provided. Breast pain, left 06/21/2024 Assessment & Plan (06/21/2024 3:25 PM DEPLOYMENT SPECIALIST): This is a significant, separately identifiable problem that was evaluated and managed on the same day as the wellness exam SVT (supraventricular tachycardia) 03/11/2023 Acute non-recurrent ethmoidal sinusitis 07/23/19 Assessment & Plan (07/23/2022 11:04 AM DEPLOYMENT SPECIALIST): Augmentin ordered with Medrol- take as prescribed [...] 07/23/2022 Assessment & Plan (07/23/2022 10:51 AM DEPLOYMENT SPECIALIST): Push fluids- water Fluticasone ordered- use as directed Non-recurrent acute serous otitis media of both ears 07/23/2022 Assessment & Plan (07/23/2022 11:02 AM DEPLOYMENT SPECIALIST): Avoid getting water in ears Avoid cleaning ears with q-tips or other objects OTC Tylenol for pain Generalized anxiety disorder 07/08/2022 Assessment & Plan (07/23/2022 10:59 AM DEPLOYMENT SPECIALIST): Moderately improved with Buspirone- will continue with medication as directed Assessment & Plan (07/08/2022 11:46 AM DEPLOYMENT SPECIALIST): Ordered Buspirone 7.5 mg TID prn- Patient educated on anxiety and how anxiety can possibly increase blood pressure. Acute nonintractable headache 07/06/2022 Assessment & Plan (07/06/2022 9:47 AM DEPLOYMENT SPECIALIST): OTC Tylenol as directed Continue Ibuprofen as directed Monitor BP Patient educated on hypertension and relation to possible cause of increased headaches Encouraged to have yearly eye exams Hypertension, essential 07/05/2022 Assessment & Plan (07/23/2022 10:58 AM DEPLOYMENT SPECIALIST): Blood pressure stable, much improved Continue current medications Amlodipine and Metoprolol without change Continue to monitor occasionally at home Stay well hydrated Assessment & Plan (07/08/2022 11:51 AM DEPLOYMENT SPECIALIST): Continue current metoprolol 25 mg Increase amlodipine to 5 mg Continue to monitor BP- BP goal <130/80 Plan to add Lisinopril 10 mg next visit if no improvement Recommend DASH diet, heart-healthy lifestyle, exercise. Discussed the risks of adding adjunct medication if BP not controlled Assessment & Plan (07/06/2022 9:50 AM DEPLOYMENT SPECIALIST): Monitor BP at home-log and send results [...] 07/05/2022 Assessment & Plan (07/06/2022 9:42 AM DEPLOYMENT SPECIALIST): Return to office in 3 months for annual exam Labs ordered Medications reviewed and refilled History of carpal tunnel release 02/20/2020 Chronic bilateral low back pain without sciatica 12/27/2019 Tobacco abuse 12/20/2017 Assessment & Plan (07/06/2022 9:46 AM DEPLOYMENT SPECIALIST): Keep scheduled appointment for acupuncture for smoking [...] 12/16/2016 Assessment & Plan (07/06/2022 9:45 AM DEPLOYMENT SPECIALIST): Follow up with Customer Success Advocate as scheduled for bone density scan Continue [...] given in written for patient to obtain [id number], long Flonase nasal spray once daily for both allergic rhinitis control as well as acute sinusitis. Encounter for wellness examination in adult 12/16/2016 12/20/2017 Mass of breast 08/22/2013 12/27/2019 Hypothyroidism 08/20/2013 12/16/2016 Overview (09/03/2016): Hypothyroidism Immunizations Immunization Administration Dates Next Due Influenza, Quadrivalent, Paula l Culture-based MDCK, Preservative Free, Antibiotic Free, Intramuscular 06/08/2021 Influenza, Quadrivalent, Spl it, Preservative Free, Intramuscular 03/04/2022,02/19/2020 Influenza, Unspecified 07/08/2022(Deferr ed: Patient Refused),12/27/2019(Deferred: Patient Refused),08/13/2019(Deferred: Patient Refused),02/27/2019(Deferred: Patient Refused),09/14/2018(Deferred: Patient ill today) Tdap 07/24/2007 Social History Tobacco Use Types Packs/Day Years [...] on file Legal Sex Female 7:45 PM DEPLOYMENT SPECIALIST Gender Identity Female 04/17/2021 6:22 AM DEPLOYMENT SPECIALIST Sexual Orientation Not on file Last Filed Vital Signs Vital Sign Reading Time Taken Comments Blood Pressure 114/70 06/21/2024 3:07 PM DEPLOYMENT SPECIALIST Pulse 79 06/21/2024 3:07 PM DEPLOYMENT SPECIALIST Temperature 36.8 C (98.3 F) 06/21/2024 3:07 PM DEPLOYMENT SPECIALIST Respiratory Rate 16 07/23/2022 10:2 7 AM DEPLOYMENT SPECIALIST Oxygen Saturation 98% 06/21/2024 3:07 PM DEPLOYMENT SPECIALIST Inhaled Oxygen Concentration - - Weight 60.6 kg (133 lb 11.2 oz) 06/21/2024 3:07 PM DEPLOYMENT SPECIALIST Height 154.9 cm (5' 1 ) 06/21/2024 3:07 PM DEPLOYMENT SPECIALIST Body Mass Index 25.26 06/21/2024 3:07 PM DEPLOYMENT SPECIALIST Plan of Treatment Not on file Procedures Procedure Name Priority Date/Time Associated Diagnosis Comments TSH Routine 06/30/2024 9:44 AM DEPLOYMENT SPECIALIST Screening for thyroid disorder LIPID PANEL Routine 06/30/2024 9:44 AM DEPLOYMENT SPECIALIST Screening for cholesterol level COMPREHENSIVE METABOLIC PANEL Routine 06/30/2024 9:44 AM DEPLOYMENT SPECIALIST Hypertension, essential COLONOSCOPY Routine 04/07/2021 SCREENING MAMMOGRAM BILATERAL W SHANDA Schedule Routine, Read Routine (OP Routine) 02/27/2021 HM DEXA SCAN Routine 09/25/2018 from Last 3 Months or Most Recently Relevant to Health Maintenance Results * TSH (06/30/2024 9:44 AM DEPLOYMENT SPECIALIST) TSH 1.580 0.450 - 4.500 uIU/mL [facility] - 01 Blood 06/30/2024 9:44 AM DEPLOYMENT SPECIALIST 06/30/2024 Narrative [facility] - 07/01/2024 7:35 AM DEPLOYMENT SPECIALIST Performed at: [facility] [id number] Casting Operator Helper: Gus Coronado PhD, Phone: [phone] Yomaira Charles SPECIFICATIONS WRITER LAB BLOOD ORDERABLES Final Re sult Performing Organization Address [facility] de Phone Number [facility] - * (ABNORMAL) Lipid panel (06/30/2024 9:44 AM DEPLOYMENT SPECIALIST) Cholesterol 207(H) 100 - 199 mg/dL [facility] - 01 Triglycerides 61 0 - 149 mg/dL [facility] - 01 HDL Cholesterol 58 >39 mg/dL [facility] - 01 VLDL 11 5 - 40 mg/dL [facility] - 01 LDL, calculated 138(H) 0 - 99 mg/dL [facility] - 01 Blood 06/30/2024 9:44 AM DEPLOYMENT SPECIALIST 06/30/2024 Narrative [facility] - 07/01/2024 7:35 AM DEPLOYMENT SPECIALIST Performed at: [facility] [id number] Casting Operator Helper: Gus Coronado PhD, Phone: [phone] Yomaira Charles SPECIFICATIONS WRITER LAB BLOOD ORDERABLES Final Re sult Performing Organization Address [facility] de Phone Number [facility] - * Comprehensive metabolic panel (06/30/2024 9:44 AM DEPLOYMENT SPECIALIST) Glucose 88 70 - 99 mg/dL [facility] [...] [facility] - 01 Blood 06/30/2024 9:44 AM DEPLOYMENT SPECIALIST 06/30/2024 Narrative [facility] - 07/01/2024 9:35 AM DEPLOYMENT SPECIALIST Performed at: 01 - [place] [id number] Casting Operator Helper: Gus Coronado PhD, Phone: [phone] Yomaira Charles SPECIFICATIONS WRITER LAB BLOOD ORDERABLES Final Re sult [facility] - 01 * Colonoscopy (04/07/2021) Anatomical Region Laterality Modality Other Historical Provider ENDOSCOPY PROCEDURES Vianca l Result * Screening Mammogram Bilateral W Shanda (02/27/2021) Anatomical Region Laterality Modality Breast Bilateral Mammography 02/27/2021 Historical Provider IMG MAMMO PROCEDURES Vianca l Result * DEXA SCAN (09/25/2018) DEXA Scan Unknown Historical Provider HEALTH MAINTENANCE Final Result from Last 3 Months or Most Recently Relevant to Health Maintenance Insurance [facility] CHOICE PLUS [facility] [employer] Care Teams Change Control Coordinator Relationship Specialty Start Date End Date Yomaira Charles NP [address] [address] PCP - General Internal Medicine 06/21/24
[2024-09-18 06:42] VITALS: BP 161/92; PULSE 134; RESP 14; TEMP 36.5; O2SAT 99
--- NOTE | 2024-09-18 06:44 | ECG_ITS ---
Test Date: 2024-09-18 06:48:53 Measurements Intervals Michie Rate: 126 P: 107 NV: 135 QRS: 73 QRSD: 94 T: 74 QT: 291 QTc: 423 Interpretive Statements SINUS TACHYCARDIA NONSPECIFIC ST & T-WAVE ABNORMALITY- DIFFUSE LEADS BASELINE ARTIFACT- I, II, V6 ABNORMAL ECG Compared to ECG 03/22/2024 08:22:04 HEART RATE HAS INCREASED Electronically Signed On 09-18-2024 07:26:46 CDT by João Aparicio D.O.
[2024-09-18 06:49] VITALS: BP 147/95; PULSE 126; RESP 12; O2SAT 100
[2024-09-18 06:56] LABS: Basophils Absolute Auto 0.1 K/mm3 (0.0-0.1); Basophils Percent Auto 0.7 % (0.2-1.2); Eosinophils Absolute Auto 0.4 K/mm3 (0-0.3); Eosinophils Percent Auto 3.5 % (0-4.4); Hematocrit 42.2 % (37.0-47.0); Immature Granulocyte Absolute 0.03 K/mm3 (0.00-0.031); Immature Granulocyte Percent A 0.3 % (0-0.5); Lymphocytes Absolute Auto 3.05 K/mm3 (0.9-3.2); Lymphocytes Percent Auto 26.9 % (18.3-44.2); Mean Corpuscular HGB Conc 33.2 g/dl (32-36); Mean Corpuscular Hemoglobin 30.4 pg (26-34); Mean Corpuscular Volume 91.7 fl (80-100); Mean Platelet Volume 8.8 fl (7.4-10.4); Monocytes Absolute Auto 1.3 K/mm3 (0.1-0.6); Monocytes Percent Auto 11.5 % (2.6-8.5); Neutrophils Absolute Auto 6.5 K/mm3 (1.3-6.7); Neutrophils Percent Auto 57.1 % (45.5-73.1); Platelet Count Result 429 k/mm3 (150-375); Red Cell Distribution Width 14.7 % (11.5-14.5); White Blood Count 11.3 K/mm3 (4.5-10.0)
[2024-09-18] MEDS: ASPIRIN 81 MG CHEWABLE TABLET 324 MG PO (07:02)
[2024-09-18 07:06] LABS: Alanine Aminotransferase 23 U/L (6-35); Albumin Level 4.8 g/dL (3.5-5.1); Alkaline Phosphatase 84 U/L (38-126); Anion Gap 11 mmol/L (4-12); Aspartate Amino Transferase 26 U/L (14-36); Bilirubin,Total 0.6 mg/dL (0.2-1.3); Blood Urea Nitrogen 10 mg/dL (7-17); Calcium 9.4 mg/dL (8.4-10.2); Carbon Dioxide 22 mmol/L (22-30); Chloride 105 mmol/L (98-107); Estimated CRCL calculation 64 ml/min; Estimated Glomerular Filt Rate > 60; Glucose 116 mg/dL (65-110); Lipase 78 U/L (23-300); Potassium 4.1 mmol/L (3.4-5.0); Sodium 138 mmol/L (137-145)
[2024-09-18 07:11] LABS: INR 0.9; Prothrombin Time 12.7 Seconds (11.1-14.7)
[2024-09-18 07:12] LABS: Partial Thromboplastin Time 29.5 Seconds (22.3-36.8)
[2024-09-18 07:15] VITALS: BP 122/80; PULSE 101; TEMP 36.6; O2SAT 96
[2024-09-18 07:18] LABS: Troponin I < 0.012 ng/mL (0.000-0.034)
--- NOTE | 2024-09-18 07:24 | PC.NURSE ---
Assumed care of pt. Pt resting with reg resp
--- OUTSIDE RECORDS SUMMARY | 2024-09-18 07:37 | XMS_ITS | Referral Summary ---
Author Organization [facility] Address [address] [place] [address] Care Team Providers Care Rotary Screen Printing Machine Operator Name Role Phone Yomaira Charles GARBAGE TRUCK DISPATCHER Primary Care Provider [phone] Encounters Date Type Department Care Team Description 06/22/2024 Telephone [facility] Family Medicine [address] [place] [address] [place] [address] Yomaira Charles NP 06/21/2024 3:00 PM FUNERAL SERVICE APPRENTICE Office Visit [facility] Medical [facility] Internal Medicine at [address] [place] [address] Yomaira Charles NP Physical exam, [...] 06/21/2024 Assessment & Plan (06/21/2024 3:08 PM FUNERAL SERVICE APPRENTICE): Discussed the patient's BMI. The BMI is above average. BMI management plan is completed. BMI Follow-up includes: nutrition counseling, exercise counseling and education provided. Breast pain, left 06/21/2024 Assessment & Plan (06/21/2024 3:25 PM FUNERAL SERVICE APPRENTICE): This is a significant, separately identifiable problem that was evaluated and managed on the same day as the wellness exam SVT (supraventricular tachycardia) 03/11/2023 Acute non-recurrent ethmoidal sinusitis 07/23/19 Assessment & Plan (07/23/2022 11:04 AM FUNERAL SERVICE APPRENTICE): Augmentin ordered with Medrol- take as prescribed [...] 07/23/2022 Assessment & Plan (07/23/2022 10:51 AM FUNERAL SERVICE APPRENTICE): Push fluids- water Fluticasone ordered- use as directed Non-recurrent acute serous otitis media of both ears 07/23/2022 Assessment & Plan (07/23/2022 11:02 AM FUNERAL SERVICE APPRENTICE): Avoid getting water in ears Avoid cleaning ears with q-tips or other objects OTC Tylenol for pain Generalized anxiety disorder 07/08/2022 Assessment & Plan (07/23/2022 10:59 AM FUNERAL SERVICE APPRENTICE): Moderately improved with Buspirone- will continue with medication as directed Assessment & Plan (07/08/2022 11:46 AM FUNERAL SERVICE APPRENTICE): Ordered Buspirone 7.5 mg TID prn- Patient educated on anxiety and how anxiety can possibly increase blood pressure. Acute nonintractable headache 07/06/2022 Assessment & Plan (07/06/2022 9:47 AM FUNERAL SERVICE APPRENTICE): OTC Tylenol as directed Continue Ibuprofen as directed Monitor BP Patient educated on hypertension and relation to possible cause of increased headaches Encouraged to have yearly eye exams Hypertension, essential 07/05/2022 Assessment & Plan (07/23/2022 10:58 AM FUNERAL SERVICE APPRENTICE): Blood pressure stable, much improved Continue current medications Amlodipine and Metoprolol without change Continue to monitor occasionally at home Stay well hydrated Assessment & Plan (07/08/2022 11:51 AM FUNERAL SERVICE APPRENTICE): Continue current metoprolol 25 mg Increase amlodipine to 5 mg Continue to monitor BP- BP goal <130/80 Plan to add Lisinopril 10 mg next visit if no improvement Recommend DASH diet, heart-healthy lifestyle, exercise. Discussed the risks of adding adjunct medication if BP not controlled Assessment & Plan (07/06/2022 9:50 AM FUNERAL SERVICE APPRENTICE): Monitor BP at home-log and send results [...] 07/05/2022 Assessment & Plan (07/06/2022 9:42 AM FUNERAL SERVICE APPRENTICE): Return to office in 3 months for annual exam Labs ordered Medications reviewed and refilled History of carpal tunnel release 02/20/2020 Chronic bilateral low back pain without sciatica 12/27/2019 Tobacco abuse 12/20/2017 Assessment & Plan (07/06/2022 9:46 AM FUNERAL SERVICE APPRENTICE): Keep scheduled appointment for acupuncture for smoking [...] 12/16/2016 Assessment & Plan (07/06/2022 9:45 AM FUNERAL SERVICE APPRENTICE): Follow up with Customer Counter Representative as scheduled for bone density scan Continue [...] given in written for patient to obtain [id number], long Flonase nasal spray once daily for [...] on file Legal Sex Female 7:45 PM FUNERAL SERVICE APPRENTICE Gender Identity Female 04/17/2021 6:22 AM FUNERAL SERVICE APPRENTICE Sexual Orientation Not on file Last Filed Vital Signs Vital Sign Reading Time Taken Comments Blood Pressure 114/70 06/21/2024 3:07 PM FUNERAL SERVICE APPRENTICE Pulse 79 06/21/2024 3:07 PM FUNERAL SERVICE APPRENTICE Temperature 36.8 C (98.3 F) 06/21/2024 3:07 PM FUNERAL SERVICE APPRENTICE Respiratory Rate 16 07/23/2022 10:2 7 AM FUNERAL SERVICE APPRENTICE Oxygen Saturation 98% 06/21/2024 3:07 PM FUNERAL SERVICE APPRENTICE Inhaled Oxygen Concentration - - Weight 60.6 kg (133 lb 11.2 oz) 06/21/2024 3:07 PM FUNERAL SERVICE APPRENTICE Height 154.9 cm (5' 1 ) 06/21/2024 3:07 PM FUNERAL SERVICE APPRENTICE Body Mass Index 25.26 06/21/2024 3:07 PM FUNERAL SERVICE APPRENTICE Plan of Treatment Not on file Procedures Procedure Name Priority Date/Time Associated Diagnosis Comments TSH Routine 06/30/2024 9:44 AM FUNERAL SERVICE APPRENTICE Screening for thyroid disorder LIPID PANEL Routine 06/30/2024 9:44 AM FUNERAL SERVICE APPRENTICE Screening for cholesterol level COMPREHENSIVE METABOLIC PANEL Routine 06/30/2024 9:44 AM FUNERAL SERVICE APPRENTICE Hypertension, essential COLONOSCOPY Routine 04/07/2021 SCREENING MAMMOGRAM BILATERAL W SHANDA Schedule Routine, Read Routine (OP Routine) 02/27/2021 HM DEXA SCAN Routine 09/25/2018 from Last 3 Months or Most Recently Relevant to Health Maintenance Results * TSH (06/30/2024 9:44 AM FUNERAL SERVICE APPRENTICE) TSH 1.580 0.450 - 4.500 uIU/mL [facility] - 01 Blood 06/30/2024 9:44 AM FUNERAL SERVICE APPRENTICE 06/30/2024 Narrative [facility] - 07/01/2024 7:35 AM FUNERAL SERVICE APPRENTICE Performed at: [facility] [id number] Worship Director: Gus Coronado PhD, Phone: [phone] Yomaira Charles GARBAGE TRUCK DISPATCHER LAB BLOOD ORDERABLES Final Re sult Performing Organization Address [facility] de Phone Number [facility] - * (ABNORMAL) Lipid panel (06/30/2024 9:44 AM FUNERAL SERVICE APPRENTICE) Cholesterol 207(H) 100 - 199 mg/dL [facility] - 01 Triglycerides 61 0 - 149 mg/dL [facility] - 01 HDL Cholesterol 58 >39 mg/dL [facility] - 01 VLDL 11 5 - 40 mg/dL [facility] - 01 LDL, calculated 138(H) 0 - 99 mg/dL [facility] - 01 Blood 06/30/2024 9:44 AM FUNERAL SERVICE APPRENTICE 06/30/2024 Narrative [facility] - 07/01/2024 7:35 AM FUNERAL SERVICE APPRENTICE Performed at: [facility] [id number] Worship Director: Gus Coronado PhD, Phone: [phone] Yomaira Charles GARBAGE TRUCK DISPATCHER LAB BLOOD ORDERABLES Final Re sult Performing Organization Address [facility] de Phone Number [facility] - * Comprehensive metabolic panel (06/30/2024 9:44 AM FUNERAL SERVICE APPRENTICE) Glucose 88 70 - 99 mg/dL [facility] [...] [facility] - 01 Blood 06/30/2024 9:44 AM FUNERAL SERVICE APPRENTICE 06/30/2024 Narrative [facility] - 07/01/2024 9:35 AM FUNERAL SERVICE APPRENTICE Performed at: 01 - [place] [id number] Worship Director: Gus Coronado PhD, Phone: [phone] Yomaira Charles GARBAGE TRUCK DISPATCHER LAB BLOOD ORDERABLES Final Re sult [facility] [...] Most Recently Relevant to Health Maintenance Insurance [facility] CHOICE PLUS [facility]ALTHSOLUTIONS Care Teams Rotary Screen Printing Machine Operator Relationship Specialty Start Date End Date Yomaira Charles NP [address] [address] PCP - General Internal Medicine 06/21/24
--- OUTSIDE RECORDS SUMMARY | 2024-09-18 07:37 | XMS_ITS | Clinical Summary ---
Author Organization [facility] Address [address] [place] [address] Care Team Providers Care Applications Tester Name Role Phone Yomaira Charles NP Primary Care Provider [phone] Allergies No known active allergies Medications medroxyPROGESTERone [...] 06/21/2024 Assessment & Plan (06/21/2024 3:08 PM VAMPER): Discussed the patient's BMI. The BMI is above average. BMI management plan is completed. BMI Follow-up includes: nutrition counseling, exercise counseling and education provided. Breast pain, left 06/21/2024 Assessment & Plan (06/21/2024 3:25 PM VAMPER): This is a significant, separately identifiable problem that was evaluated and managed on the same day as the wellness exam SVT (supraventricular tachycardia) 03/11/2023 Acute non-recurrent ethmoidal sinusitis 07/23/19 Assessment & Plan (07/23/2022 11:04 AM VAMPER): Augmentin ordered with Medrol- take as prescribed [...] 07/23/2022 Assessment & Plan (07/23/2022 10:51 AM VAMPER): Push fluids- water Fluticasone ordered- use as directed Non-recurrent acute serous otitis media of both ears 07/23/2022 Assessment & Plan (07/23/2022 11:02 AM VAMPER): Avoid getting water in ears Avoid cleaning ears with q-tips or other objects OTC Tylenol for pain Generalized anxiety disorder 07/08/2022 Assessment & Plan (07/23/2022 10:59 AM VAMPER): Moderately improved with Buspirone- will continue with medication as directed Assessment & Plan (07/08/2022 11:46 AM VAMPER): Ordered Buspirone 7.5 mg TID prn- Patient educated on anxiety and how anxiety can possibly increase blood pressure. Acute nonintractable headache 07/06/2022 Assessment & Plan (07/06/2022 9:47 AM VAMPER): OTC Tylenol as directed Continue Ibuprofen as directed Monitor BP Patient educated on hypertension and relation to possible cause of increased headaches Encouraged to have yearly eye exams Hypertension, essential 07/05/2022 Assessment & Plan (07/23/2022 10:58 AM VAMPER): Blood pressure stable, much improved Continue current medications Amlodipine and Metoprolol without change Continue to monitor occasionally at home Stay well hydrated Assessment & Plan (07/08/2022 11:51 AM VAMPER): Continue current metoprolol 25 mg Increase amlodipine to 5 mg Continue to monitor BP- BP goal <130/80 Plan to add Lisinopril 10 mg next visit if no improvement Recommend DASH diet, heart-healthy lifestyle, exercise. Discussed the risks of adding adjunct medication if BP not controlled Assessment & Plan (07/06/2022 9:50 AM VAMPER): Monitor BP at home-log and send results [...] 07/05/2022 Assessment & Plan (07/06/2022 9:42 AM VAMPER): Return to office in 3 months for annual exam Labs ordered Medications reviewed and refilled History of carpal tunnel release 02/20/2020 Chronic bilateral low back pain without sciatica 12/27/2019 Tobacco abuse 12/20/2017 Assessment & Plan (07/06/2022 9:46 AM VAMPER): Keep scheduled appointment for acupuncture for smoking [...] 12/16/2016 Assessment & Plan (07/06/2022 9:45 AM VAMPER): Follow up with Tow Motor Mechanic as scheduled for bone density scan Continue [...] given in written for patient to obtain [id number], long Flonase nasal spray once daily for both allergic rhinitis control as well as acute sinusitis. Encounter for wellness examination in adult 12/16/2016 12/20/2017 Mass of breast 08/22/2013 12/27/2019 Hypothyroidism 08/20/2013 12/16/2016 Overview (09/03/2016): Hypothyroidism Encounters Date Type Department Care Team Description 06/22/2024 Telephone [facility] Family Medicine [address] [place] [address] Yomaira Charles, BRAN 06/21/2024 3:00 PM VAMPER Office Visit [facility] Medical [facility] Internal Medicine at [address] [place] [address] Yomaira Charles, BRAN Physical exam, [...] Medical bunion on foot Hx Other Medical 02-Director Check Hx Other Medical 01-TECHNOLOGY ADOPTION MANAGER Osteoporosis Hypertension Family History Medical History Relation [...] on file Legal Sex Female 7:45 PM VAMPER Gender Identity Female 04/17/2021 6:22 AM VAMPER Sexual Orientation Not on file Obstetrics History Last Filed Vital Signs Vital Sign Reading Time Taken Comments Blood Pressure 114/70 06/21/2024 3:07 PM VAMPER Pulse 79 06/21/2024 3:07 PM VAMPER Temperature 36.8 C (98.3 F) 06/21/2024 3:07 PM VAMPER Respiratory Rate 16 07/23/2022 10:2 7 AM VAMPER Oxygen Saturation 98% 06/21/2024 3:07 PM VAMPER Inhaled Oxygen Concentration - - Weight 60.6 kg (133 lb 11.2 oz) 06/21/2024 3:07 PM VAMPER Height 154.9 cm (5' 1 ) 06/21/2024 3:07 PM VAMPER Body Mass Index 25.26 06/21/2024 3:07 PM VAMPER Plan of Treatment Health Maintenance Due Date [...] Diagnosis Comments TSH Routine 06/30/2024 9:44 AM VAMPER Screening for thyroid disorder LIPID PANEL Routine 06/30/2024 9:44 AM VAMPER Screening for cholesterol level COMPREHENSIVE METABOLIC PANEL Routine 06/30/2024 9:44 AM VAMPER Hypertension, essential COLONOSCOPY Routine 04/07/2021 SCREENING MAMMOGRAM BILATERAL W BRENT Schedule Routine, Read Routine (OP Routine) 02/27/2021 HM DEXA SCAN Routine 09/25/2018 from Last 3 Months or Most Recently Relevant to Health Maintenance Results * TSH (06/30/2024 9:44 AM VAMPER) TSH 1.580 0.450 - 4.500 uIU/mL [facility] - 01 Blood 06/30/2024 9:44 AM VAMPER 06/30/2024 Narrative [facility] - 07/01/2024 7:35 AM VAMPER Performed at: [address] [id number] Surveying Or Spatial Science Technician: Gus Coronado PhD, Phone: [phone] Yomaira Charles PIPEFITTER WELDER LAB BLOOD ORDERABLES Final Re sult Performing Organization Address [facility] de Phone Number [facility] - * (ABNORMAL) Lipid panel (06/30/2024 9:44 AM VAMPER) Cholesterol 207(H) 100 - 199 mg/dL [facility] - 01 Triglycerides 61 0 - 149 mg/dL [facility] - 01 HDL Cholesterol 58 >39 mg/dL [facility] - 01 VLDL 11 5 - 40 mg/dL [facility] - 01 LDL, calculated 138(H) 0 - 99 mg/dL [facility] - 01 Blood 06/30/2024 9:44 AM VAMPER 06/30/2024 Narrative [facility] - 07/01/2024 7:35 AM VAMPER Performed at: [facility] [id number] Surveying Or Spatial Science Technician: Gus Coronado PhD, Phone: [phone] Yomaira Charles PIPEFITTER WELDER LAB BLOOD ORDERABLES Final Re sult Performing Organization Address [facility] Phone Number [facility] - * Comprehensive metabolic panel (06/30/2024 9:44 AM VAMPER) Glucose 88 70 - 99 mg/dL [facility] [...] [facility] - 01 Blood 06/30/2024 9:44 AM VAMPER 06/30/2024 Narrative [facility] - 07/01/2024 9:35 AM VAMPER Performed at: - [facility] [id number] Surveying Or Spatial Science Technician: Gus Coornado PhD, Phone: [phone] Yomaira Charles PIPEFITTER WELDER LAB BLOOD ORDERABLES Final Re sult [facility] [...] Most Recently Relevant to Health Maintenance Insurance [facility] CHOICE PLUS [facility]UT[facility] Care Teams Applications Tester Relationship Specialty Start Date End Date Yomaira Charles NP [address] [address] PCP - General Internal Medicine 06/21/24
[2024-09-18 09:00] VITALS: BP 111/80; PULSE 93; TEMP 36.6; O2SAT 98
--- NOTE | 2024-09-18 09:33 | ED.GENADULT ---
HPI - General Adult General Chief complaint: Arrhythmia/Palpitations Stated complaint: Im having problems with my heart rate Time Seen by Provider: 09/18/24 07:01 History of Present Illness HPI narrative: This is a 54-year-old female with history of paroxysmal SVT presenting for tachycardia. Patient says she woke this morning and her heart rate was 120-130. She had palpitations. She denies chest pain, difficulty breathing, dizziness, loss of consciousness. Patient has had this problem for quite some time and is actually worn a Holter monitor 2 times in the past. Both times she was found have paroxysmal SVT episodes of SVT. She has taken her metoprolol this morning. Patient became anxious when her heart was racing and came to the ED for evaluation. By time I interviewed her symptoms have resolved. She is currently asymptomatic. Related Data Home Medications ?Medication ?Instructions ?Recorded ?Confirmed ?Last Taken ?Type estradiol 1 mg tablet 1 mg PO DAILY 03/23/21 07/26/22 07/26/22 History medroxyprogesterone 5 mg tablet 5 mg PO DAILY 03/23/21 07/26/22 07/26/22 History pantoprazole 40 mg tablet,delayed 40 mg PO DAILY 09/17/21 07/26/22 07/26/22 History release amlodipine 5 mg tablet 5 mg PO DAILY 07/26/22 07/26/22 07/26/22 History amoxicillin 875 mg-potassium 1 tablet PO BID 07/26/22 07/26/22 07/26/22 History clavulanate 125 mg tablet buspirone 7.5 mg tablet 7.5 mg PO TID PRN Anxiety 07/26/22 07/26/22 07/26/22 History fluticasone propionate 50 2 spray intranasal BID 07/26/22 07/26/22 07/26/22 History mcg/actuation nasal spray,suspension ibuprofen 200 mg tablet 400 mg PO Q6H PRN Pain 07/26/22 07/26/22 Unknown History Allergies Allergy/AdvReac Type Severity Reaction Status Date / Time No Known Allergies Allergy Verified 09/18/24 06:51 [facility] Past Medical History Medical History Hypertension Surgical History Surgical History No pertinent past surgical history Social History Social History (System 02/07/24 @ 11:25 by Que Isaacs) Smoking packs per day: 0.5 Smoking cigarettes per day: 10.0 Years smoked: 25 Smoking pack-years: 12.50 Smoking status: Current every day smoker Tobacco type: cigarettes Alcohol intake: current Drinks per week: 8 Alcohol use details: 2-3 drinks a couple times per week Substance use: never Substance use type: does not use Lack of Transportation: No Lack of Food: Never True Current Housing: I Have Housing Concerned About Future Housing: No Difficulty Paying Gas/Electric Bills: No Difficulty Paying for Meds: No Currently Unemployed: No Education: High School Diploma/GED Difficulty w/ Childcare or Family Care: No Living arrangements: with family Additional living arrangements comments: spouse Spiritual care concerns: No Exam Narrative: APPEARANCE: No apparent distress. Head: atraumatic. EYES: EOMI, NOSE: Atraumatic NECK: Trachea midline RESPIRATORY: No increased rate of breathing clear to auscultation CARDIOVASCULAR: RRR, no peripheral edema ABDOMINAL: Non-distended soft nontender MUSCULOSKELETAl: No obvious deformities NEURO: Alert. Moving 4/4 extremities SKIN:: Warm, dry. Normal color PSYCHIATRIC: Normal affect Course Vital Signs Vital signs: Vital Signs Temperature 97.7 F 09/18/24 06:42 Pulse Rate 134 H 09/18/24 06:42 Respiratory Rate 14 09/18/24 06:42 Blood Pressure 161/92 H 09/18/24 06:42 Pulse Oximetry 99 09/18/24 06:42 Oxygen Delivery Room Air 09/18/24 06:42 Temperature 97.9 F 09/18/24 09:00 Pulse Rate 93 09/18/24 09:00 Respiratory Rate 12 09/18/24 06:49 Blood Pressure 111/80 09/18/24 09:00 Pulse Oximetry 98 09/18/24 09:00 Oxygen Delivery Room Air 09/18/24 06:49 Medical Decision Making [facility] Narrative Medical decision making narrative: -Course: 54-year-old female with history of paroxysmal tachycardia presenting with tachycardia. All symptoms had resolved by time I interviewed her here. Laboratory studies and chest x-ray EKG obtained via nursing protocol. All results were unremarkable. Patient's was re-evaluated is resting comfortably in bed. She is comfortable following up with her air and hydronic balancing technician for further management. Discharged with return precautions -DDX includes but is not limited to: Paroxysmal SVT, tachycardia, pots, anxiety, atrial fibrillation -Co-morbidities complicating care: Paroxysmal SVT -Independent interpretation of studies: Independent EKG interpretation: Rhythm [sinus], Rate 126, [place] -[normal], NE -[normal], QRS [narrow], QTC [normal], T waves -[negative for concerning inversions], ST Segments - [Negative for concerning elevations] Final interpretations: Sinus tachycardia Vital Signs Vital Signs: Vital Signs Temperature 97.7 F 09/18/24 06:42 Pulse Rate 134 H 09/18/24 06:42 Respiratory Rate 14 09/18/24 06:42 Blood Pressure 161/92 H 09/18/24 06:42 Pulse Oximetry 99 09/18/24 06:42 Oxygen Delivery Room Air 09/18/24 06:42 Temperature 97.9 F 09/18/24 09:00 Pulse Rate 93 09/18/24 09:00 Respiratory Rate 12 09/18/24 06:49 Blood Pressure 111/80 09/18/24 09:00 Pulse Oximetry 98 09/18/24 09:00 Oxygen Delivery Room Air 09/18/24 06:49 Lab Data 09/18/24 06:51 09/18/24 06:51 Labs: Lab Results 09/18/24 09/18/24 Range/Units 06:51 09:38 WBC 11.3 H (4.5-10.0) K/mm3 RBC 4.60 (4.2-5.4) M/mm3 Hgb 14.0 (12.0-15.0) g/dL Hct 42.2 (37.0-47.0) % MCV 91.7 (80-100) fl MCH 30.4 (26-34) pg MCHC 33.2 (32-36) g/dl RDW 14.7 H (11.5-14.5) % Plt Count 429 H (150-375) k/mm3 MPV 8.8 (7.4-10.4) fl Immature Gran % (Auto) 0.3 (0-0.5) % Neut % (Auto) 57.1 (45.5-73.1) % Lymph % (Auto) 26.9 (18.3-44.2) % [place] % (Auto) 11.5 H (2.6-8.5) % Eos % (Auto) 3.5 (0-4.4) % Baso % (Auto) 0.7 (0.2-1.2) % Lymph # (Auto) 3.05 (0.9-3.2) K/mm3 [place] # (Auto) 1.3 H (0.1-0.6) K/mm3 Eos # (Auto) 0.4 H (0-0.3) K/mm3 Baso # (Auto) 0.1 (0.0-0.1) K/mm3 Abs Immat Gran (auto) 0.03 (0.00-0.031) K/mm3 Absolute Neuts (auto) 6.5 (1.3-6.7) K/mm3 Absolute Nucleated RBC 0.000 (0.0-0.012) K/mm3 Nucleated RBC % 0.0 (0.0-0.2) % PT 12.7 (11.1-14.7) Seconds INR 0.9 APTT 29.5 (22.3-36.8) Seconds Sodium 138 (137-145) mmol/L Potassium 4.1 (3.4-5.0) mmol/L Chloride 105 (98-107) mmol/L Carbon Dioxide 22 (22-30) mmol/L Anion Gap 11 (4-12) mmol/L BUN 10 (7-17) mg/dL Creatinine 0.67 L (0.7-1.0) mg/dL Estim Creat Clear Calc 64 ml/min Estimated GFR > 60 (59 - ) Glucose 116 H (65-110) mg/dL Calcium 9.4 (8.4-10.2) mg/dL Total Bilirubin 0.6 (0.2-1.3) mg/dL AST 26 (14-36) U/L ALT 23 (6-35) U/L Alkaline Phosphatase 84 (38-126) U/L Troponin I < 0.012 < 0.012 (0.000-0.034) ng/mL Total Protein 8.0 (6.3-8.2) g/dL Albumin 4.8 (3.5-5.1) g/dL Lipase 78 (23-300) U/L Discharge Plan Discharge Clinical Impression: Tachycardia Patient Disposition: Home Condition: Stable Instructions: Antibiotic Form, Valsalva Maneuver (ED), Tachycardia (ED) Additional Instructions: You were seen in the emergency department for tachycardia. Your heart rate is improved without intervention. Please follow-up with air and hydronic balancing technician for further management. If you develop palpitations again you can try Valsalva maneuvers at home to see if that controls your heart rate. Return if you develop palpitations chest pain difficulty breathing. Patient Language: Welsh Prescriptions: No Action pantoprazole 40 mg tablet,delayed release (DR/EC) 40 mg PO DAILY medroxyprogesterone 5 mg tablet 5 mg PO DAILY estradiol 1 mg tablet 1 mg PO DAILY amlodipine 5 mg tablet 5 mg PO DAILY ibuprofen 200 mg Tablet 400 mg PO Q6H PRN (Reason: Pain) buspirone 7.5 mg tablet 7.5 mg PO TID PRN (Reason: Anxiety) fluticasone propionate 50 mcg/actuation spray,suspension 2 spray INTRANASAL BID amoxicillin-pot clavulanate 875-125 mg tablet 1 tablet PO BID Rx Instructions: for 10 days metoprolol succinate 50 mg Tablet Extended Release 24 Hr 50 mg PO DAILY 30 Days Qty: 30 0RF Follow-up/Referrals: UNKNOWN,DOCTOR [Primary Care Provider] -
--- NOTE | 2024-09-18 09:39 | ECG_ITS ---
Test Date: 2024-09-18 09:45:15 Measurements Intervals [place] Rate: 75 P: 70 AL: 193 QRS: 70 QRSD: 93 T: 63 QT: 351 QTc: 392 Interpretive Statements SINUS RHYTHM NORMAL ECG Compared to ECG 09/18/2024 06:48:53 HEART RATE HAS DECREASED Electronically Signed On 09-18-2024 09:54:19 CDT by João Aparicio D.O.
--- NOTE | 2024-09-18 09:52 | PC.NURSE ---
Pt resting 3 hour trop & ekg completed
[2024-09-18 10:07] LABS: Troponin I < 0.012 ng/mL (0.000-0.034)
[2024-09-18 10:30] VITALS: BP 112/70; PULSE 69; RESP 18; TEMP 36.7; O2SAT 100
== END 2024-09-18 10:30 | disposition home or self-care (01) ==
PROVIDERS: Emergency Medicine; Emergency Provider Emergency Medicine
DX: R00.0 Tachycardia, unspecified (principal); I10 Essential (primary) hypertension
CPT/HCPCS: 36415; 71046; 80053; 83690; 84484; 85025; 85610; 85730; 93005; 99284; A9270

== ENCOUNTER 2024-09-29 10:19 | Outpatient (CLI) | payer OTHER, SELFPAY ==
--- NOTE | ~2024-09-29 | MM_ITS ---
EXAMINATION: MM screening van BI w venkat HISTORY: Screening TECHNIQUE: Craniocaudal and mediolateral oblique 3-D tomosynthesis images were obtained and synthetic 2-D images were generated. CAD analysis was submitted and interpreted. COMPARISON: Comparison to multiple prior studies sequentially, with oldest reviewed study dated 03/30. BREAST PARENCHYMAL COMPOSITION: Not dense: There are scattered areas of fibroglandular density. FINDINGS: There is no evidence of suspicious mass, calcification, or architectural distortion to sugg est malignancy in either breast. There has been no suspicious interval change. IMPRESSION: 1. No mammographic evidence of malignancy. 2. Recommend routine screening mammography in one year. BI-RADS Category 1: Negative Reviewed, dictated and finalized at location A.
--- OUTSIDE RECORDS SUMMARY | 2024-09-29 16:19 | XMS_ITS | Referral Summary ---
Author Organization [facility] Address [address] [place] [address] Care Team Providers Care Mowing Machine Operator Name Role Phone Yomaira Charles NP Primary Care Provider [phone] Encounters Date Type Department Care Team Description 09/25/2024 Telephone [facility] Cardiology [address] [place] [phone] Gloria Jimenez NP 09/25/2024 1:30 PM CDT Office Visit [facility] Cardiology [address] [place] [phone] Gloria Jimenez NP PSVT (paroxysmal supraventricular tachycardia) (Primary Dx); Essential hypertension; Tobacco abuse from Last 3 Months Allergies No known [...] 06/21/2024 Assessment & Plan (06/21/2024 3:08 PM COMMERCIAL LOAN ASSISTANT): Discussed the patient's BMI. The BMI is above average. BMI management plan is completed. BMI Follow-up includes: nutrition counseling, exercise counseling and education provided. Breast pain, left 06/21/2024 Assessment & Plan (06/21/2024 3:25 PM COMMERCIAL LOAN ASSISTANT): This is a significant, separately identifiable problem that was evaluated and managed on the same day as the wellness exam SVT (supraventricular tachycardia) 03/11/2023 Acute non-recurrent ethmoidal sinusitis 07/23/19 Assessment & Plan (07/23/2022 11:04 AM COMMERCIAL LOAN ASSISTANT): Augmentin ordered with Medrol- take as prescribed [...] 07/23/2022 Assessment & Plan (07/23/2022 10:51 AM COMMERCIAL LOAN ASSISTANT): Push fluids- water Fluticasone ordered- use as directed Non-recurrent acute serous otitis media of both ears 07/23/2022 Assessment & Plan (07/23/2022 11:02 AM COMMERCIAL LOAN ASSISTANT): Avoid getting water in ears Avoid cleaning ears with q-tips or other objects OTC Tylenol for pain Generalized anxiety disorder 07/08/2022 Assessment & Plan (07/23/2022 10:59 AM COMMERCIAL LOAN ASSISTANT): Moderately improved with Buspirone- will continue with medication as directed Assessment & Plan (07/08/2022 11:46 AM COMMERCIAL LOAN ASSISTANT): Ordered Buspirone 7.5 mg TID prn- Patient educated on anxiety and how anxiety can possibly increase blood pressure. Acute nonintractable headache 07/06/2022 Assessment & Plan (07/06/2022 9:47 AM COMMERCIAL LOAN ASSISTANT): OTC Tylenol as directed Continue Ibuprofen as directed Monitor BP Patient educated on hypertension and relation to possible cause of increased headaches Encouraged to have yearly eye exams Hypertension, essential 07/05/2022 Assessment & Plan (07/23/2022 10:58 AM COMMERCIAL LOAN ASSISTANT): Blood pressure stable, much improved Continue current medications Amlodipine and Metoprolol without change Continue to monitor occasionally at home Stay well hydrated Assessment & Plan (07/08/2022 11:51 AM COMMERCIAL LOAN ASSISTANT): Continue current metoprolol 25 mg Increase amlodipine to 5 mg Continue to monitor BP- BP goal <130/80 Plan to add Lisinopril 10 mg next visit if no improvement Recommend DASH diet, heart-healthy lifestyle, exercise. Discussed the risks of adding adjunct medication if BP not controlled Assessment & Plan (07/06/2022 9:50 AM COMMERCIAL LOAN ASSISTANT): Monitor BP at home-log and send results [...] 07/05/2022 Assessment & Plan (07/06/2022 9:42 AM COMMERCIAL LOAN ASSISTANT): Return to office in 3 months for annual exam Labs ordered Medications reviewed and refilled History of carpal tunnel release 02/20/2020 Chronic bilateral low back pain without sciatica 12/27/2019 Tobacco abuse 12/20/2017 Assessment & Plan (07/06/2022 9:46 AM COMMERCIAL LOAN ASSISTANT): Keep scheduled appointment for acupuncture for smoking [...] 12/16/2016 Assessment & Plan (07/06/2022 9:45 AM COMMERCIAL LOAN ASSISTANT): Follow up with [facility] as scheduled for bone density scan Continue [...] given in written for patient to obtain [id number], long Flonase nasal spray once daily for both allergic rhinitis control as well as acute sinusitis. Encounter for wellness examination in adult 12/16/2016 12/20/2017 Mass of breast 08/22/2013 12/27/2019 Hypothyroidism 08/20/2013 12/16/2016 Overview (09/03/2016): Hypothyroidism Immunizations Immunization Administration Dates Next Due Influenza, Quadrivalent, Paula l Culture-based MDCK, Preservative Free, Antibiotic Free, Intramuscular 06/08/2021 Influenza, Quadrivalent, Spl it, Preservative Free, Intramuscular 03/04/2022,02/19/2020 Influenza, Unspecified 06/21/2024(Deferr ed: Patient Refused),06/21/2024(Deferred: Patient Refused),05/30/2023(Deferred: Patient Refused),05/30/2023(Deferred: Patient Refused),07/08/2022(Deferred: Patient Refused),12/27/2019(Deferred: Patient Refused),08/13/2019(Deferred: Patient Refused),02/27/2019(Deferred: Patient [...] on file Legal Sex Female 7:45 PM COMMERCIAL LOAN ASSISTANT Gender Identity Female 04/17/2021 6:22 AM COMMERCIAL LOAN ASSISTANT Sexual Orientation Not on file Last Filed Vital Signs Vital Sign Reading Time Taken Comments Blood Pressure 114/66 09/25/2024 1:28 PM CDT Pulse 73 09/25/2024 1:28 PM CDT Temperature 36.8 C (98.3 F) 06/21/2024 3:07 PM COMMERCIAL LOAN ASSISTANT Respiratory Rate 16 07/23/2022 10:27 AM COMMERCIAL LOAN ASSISTANT Oxygen Saturation 98% 09/25/2024 1:28 PM CDT Inhaled Oxygen Concentration - - Weight 57.6 kg (127 lb) 09/25/2024 1:28 PM CDT Height 154.9 cm (5' 1 ) 09/25/2024 1:28 PM CDT Body Mass Index 24 09/25/2024 1:28 PM CDT Plan of Treatment Not on file Procedures Procedure Name Priority Date/Time Associated Diagnosis Comments COLONOSCOPY Routine 04/07/2021 SCREENING MAMMOGRAM BILATERAL W SHANDA Schedule Routine, Read Routine (OP Routine) 02/27/2021 HM DEXA SCAN Routine 09/25/2018 from Last 3 Months or Most Recently Relevant to Health Maintenance Results * Colonoscopy (04/07/2021) Anatomical Region Laterality Modality Other Historical Provider ENDOSCOPY PROCEDURES Vianca l Result * Screening Mammogram Bilateral W Shanda (02/27/2021) Anatomical Region Laterality Modality Breast Bilateral Mammography 02/27/2021 Historical Provider IMG MAMMO PROCEDURES Vianca l Result * HM DEXA SCAN (09/25/2018) HM DEXA Scan Unknown Historical Provider HEALTH MAINTENANCE Final Result from Last 3 Months or Most Recently Relevant to Health Maintenance Insurance [facility] CHOICE PLUS [facility] HMO/PPO Address: [facility] [address] [place] [address] [facility] [employer] Care Teams Mowing Machine Operator Relationship Specialty Start Date End Date Yomaira Charles NP [address] [address] PCP - General Internal Medicine 06/21/24
--- OUTSIDE RECORDS SUMMARY | 2024-09-29 16:19 | XMS_ITS | Clinical Summary ---
Author Organization [facility] Address [address] [place] [address] Care Team Providers Care Program Support Assistant Name Role Phone Yomaira Charles NP Primary Care Provider [phone] Allergies No known active allergies Medications medroxyPROGESTERone [...] 06/21/2024 Assessment & Plan (06/21/2024 3:08 PM TANKERMAN): Discussed the patient's BMI. The BMI is above average. BMI management plan is completed. BMI Follow-up includes: nutrition counseling, exercise counseling and education provided. Breast pain, left 06/21/2024 Assessment & Plan (06/21/2024 3:25 PM TANKERMAN): This is a significant, separately identifiable problem that was evaluated and managed on the same day as the wellness exam SVT (supraventricular tachycardia) 03/11/2023 Acute non-recurrent ethmoidal sinusitis 07/23/19 Assessment & Plan (07/23/2022 11:04 AM TANKERMAN): Augmentin ordered with Medrol- take as prescribed [...] 07/23/2022 Assessment & Plan (07/23/2022 10:51 AM TANKERMAN): Push fluids- water Fluticasone ordered- use as directed Non-recurrent acute serous otitis media of both ears 07/23/2022 Assessment & Plan (07/23/2022 11:02 AM TANKERMAN): Avoid getting water in ears Avoid cleaning ears with q-tips or other objects OTC Tylenol for pain Generalized anxiety disorder 07/08/2022 Assessment & Plan (07/23/2022 10:59 AM TANKERMAN): Moderately improved with Buspirone- will continue with medication as directed Assessment & Plan (07/08/2022 11:46 AM TANKERMAN): Ordered Buspirone 7.5 mg TID prn- Patient educated on anxiety and how anxiety can possibly increase blood pressure. Acute nonintractable headache 07/06/2022 Assessment & Plan (07/06/2022 9:47 AM TANKERMAN): OTC Tylenol as directed Continue Ibuprofen as directed Monitor BP Patient educated on hypertension and relation to possible cause of increased headaches Encouraged to have yearly eye exams Hypertension, essential 07/05/2022 Assessment & Plan (07/23/2022 10:58 AM TANKERMAN): Blood pressure stable, much improved Continue current medications Amlodipine and Metoprolol without change Continue to monitor occasionally at home Stay well hydrated Assessment & Plan (07/08/2022 11:51 AM TANKERMAN): Continue current metoprolol 25 mg Increase amlodipine to 5 mg Continue to monitor BP- BP goal <130/80 Plan to add Lisinopril 10 mg next visit if no improvement Recommend DASH diet, heart-healthy lifestyle, exercise. Discussed the risks of adding adjunct medication if BP not controlled Assessment & Plan (07/06/2022 9:50 AM TANKERMAN): Monitor BP at home-log and send results [...] 07/05/2022 Assessment & Plan (07/06/2022 9:42 AM TANKERMAN): Return to office in 3 months for annual exam Labs ordered Medications reviewed and refilled History of carpal tunnel release 02/20/2020 Chronic bilateral low back pain without sciatica 12/27/2019 Tobacco abuse 12/20/2017 Assessment & Plan (07/06/2022 9:46 AM TANKERMAN): Keep scheduled appointment for acupuncture for smoking [...] 12/16/2016 Assessment & Plan (07/06/2022 9:45 AM TANKERMAN): Follow up with [facility] as scheduled for bone density scan Continue [...] given in written for patient to obtain [id number], long Flonase nasal spray once daily for both allergic rhinitis control as well as acute sinusitis. Encounter for wellness examination in adult 12/16/2016 12/20/2017 Mass of breast 08/22/2013 12/27/2019 Hypothyroidism 08/20/2013 12/16/2016 Overview (09/03/2016): Hypothyroidism Encounters Date Type Department Care Team Description 09/25/2024 1:30 PM CDT Office Visit [facility] Cardiology [address] [place] [phone] Gloria Jimenez NP PSVT (paroxysmal supraventricular tachycardia) (Primary Dx); Essential hypertension; Tobacco abuse 09/25/2024 Telephone [facility] Cardiology [address] [place] [address] Gloria Jimenez NP from Last 3 Months Immunizations Immunization Administration [...] Medical bunion on foot 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 Osteoporosis Hypertension Family History Medical History Relation Name Comments Other Brother 2 Alive and well; Hypertension Brother 3 Stefan Kidney disease Brother 4 Stefan Susannaki Kidney disease Brother 5 Stefanchandrakant Carrasco Hypertension Brother 6 Stefan Hypertension Father Nigel Hypertension; Other Father Nigel Alive and well; Other Mother Alive and well; Other Other 1 No family histo ry of Cancer; Other Other 2 No family histo ry of Diabetes mellitus; Other Other 3 No family histo ry of Heart disease; Relation Name Status Comments Brother 1 Alive Brother 2 Brother 3 Stefan Brother 4 Stefan Carrasco Brother 5 Stefan Carrasco Alive Brother 6 Stefan Alive Father Nigel Alive Mother Alive Other 1 [...] on file Legal Sex Female 7:45 PM TANKERMAN Gender Identity Female 04/17/2021 6:22 AM TANKERMAN Sexual Orientation Not on file Obstetrics History Last Filed Vital Signs Vital Sign Reading Time Taken Comments Blood Pressure 114/66 09/25/2024 1:28 PM CDT Pulse 73 09/25/2024 1:28 PM CDT Temperature 36.8 C (98.3 F) 06/21/2024 3:07 PM TANKERMAN Respiratory Rate 16 07/23/2022 10:27 AM TANKERMAN Oxygen Saturation 98% 09/25/2024 1:28 PM CDT Inhaled Oxygen Concentration - - Weight 57.6 kg (127 lb) 09/25/2024 1:28 PM CDT Height 154.9 cm (5' 1 ) 09/25/2024 1:28 PM CDT Body Mass Index 24 09/25/2024 1:28 PM CDT Plan of Treatment Health Maintenance Due Date [...] Colonoscopy (04/07/2021) Anatomical Region Laterality Modality Other us Historical Provider ENDOSCOPY PROCEDURES Vianca l Result * Screening Mammogram Bilateral W Brent (02/27/2021) Anatomical Region Laterality Modality Breast Bilateral Mammography 02/27/2021 us Historical Provider IMG MAMMO PROCEDURES Vianca l Result * HM DEXA SCAN (09/25/2018) [facility] DEXA Scan Unknown us Historical Provider HEALTH MAINTENANCE Final Result from Last 3 Months or Most Recently Relevant to Health Maintenance Insurance [facility] CHOICE PLUS [facility] [employer] Care Teams Program Support Assistant Relationship Specialty Start Date End Date Yomaira Charles NP [address] [address] PCP - General Internal Medicine 06/21/24
== END 2024-09-29 10:20 | disposition home or self-care (01) ==
LOC: ANHIMG 10:21
PROVIDERS: PCP Nurse Practitioner Family; Visit Provider Nurse Practitioner Women's Health
DX: Z12.31 Encounter for screening mammogram for malignant neoplasm of breast (principal)
CPT/HCPCS: 77063; 77067